=== PATIENT | female | born 1965 | race Caucasian/White ===

== ENCOUNTER 2016-03-24 23:36 | Observation (INO) ==
[2016-03-25 00:15] LABS: Basophils % 0.2 %; Eosinophils % 0.1 %; Hematocrit 41.5 % (35.3-44.9); Hemoglobin 14.2 g/dL (11.5-15.4); Immature Granulocytes % 0.6 % (0-4); Lymphocytes # 0.9 K/mcL (0.6-4.6); Mean Corpuscular HGB Conc 34.2 g/dL (31.6-35.5); Mean Corpuscular Volume 87.7 fL (83.0-100.0); Mean Platelet Volume 10.4 fL (9.4-12.4); Monocytes # 0.3 K/mcL (0.0-1.3); Monocytes % 2.6 %; Neutrophils # 8.8 K/mcL (1.6-8.9); Platelet Count 286 K/mcL (140-400); Red Blood Count 4.73 M/mcL (3.82-4.97); Red Cell Distribution Width 12.3 % (11.5-14.5); Segmented Neutrophils % 87.5 %
--- NOTE | 2016-03-25 00:41 | Emergency Department Note ---
Disposition Clinical Impression: Generalized abdominal pain, Nausea and vomiting, Dehydration, Urinary incontinence Disposition: Admitted As Inpatient Condition: Fair Referrals: NO,PCP [Primary Care Provider] - Forms: Work/School Release, ED Satisfaction Letter Time of Disposition: 03:46 Abdominal Pain HPI - General Chief Complaint: ED Abdominal Pain Stated Complaint: belly pain,n/v Time Seen by Provider: 03/25/16 00:39 Source: patient, EMS Mode of arrival: EMS Limitations: other (pt is drowsy on exam) Nursing Notes Reviewed: Yes Vital Signs Reviewed: Yes - History of Present Illness HPI Narrative: This is a 50-year-old female who presents with abdominal pain diffusely starting yesterday. Patient denies any diarrhea or bloody stools. Patient does state associated nausea and vomiting. Patient denies any fevers. Patient' s very drowsy on exam and is a poor historian. Patient states she is mildly short of breath but is not having chest pain. Pt Subjective Complaint: abdominal pain Onset (ago): day(s) (1) Consistency: constant Pain Scale: 10 - Related Data Previous Rx's Medication Instructions Recorded Ibuprofen [Motrin] 600 mg PO Q8HR PRN 5 Days 03/09/15 Ondansetron [Zofran] 4 mg PO Q8HR PRN 5 Days 03/09/15 Dicyclomine [Bentyl] 10 mg PO QID PRN #14 capsule 03/22/15 Allergies Allergy/AdvReac Type Severity Reaction Status Date / Time codeine Allergy Intermediate Hives Verified 03/24/16 23:42 All systems ED: reviewed and negative except as stated. Constitutional: Denies: fever, chills, weakness, weight change Eyes: Denies: eye pain, eye discharge, vision change ENT ED: Denies: ear pain, throat pain, dental pain, hearing loss, epistaxis, congestion, dysphagia Cardiovascular: Denies: chest pain, palpitations, dyspnea on exertion, edema, syncope Respiratory: Denies: cough, dyspnea, wheezes, hemoptysis, stridor Gastrointestinal: Reports: abdominal pain, nausea, vomiting. Denies: diarrhea, constipation, hematemesis, melena, hematochezia Genitourinary: Denies: dysuria, frequency, hematuria, discharge Musculoskeletal: Denies: back pain, neck pain, arthralgia, myalgia Integumentary: Denies: rash, abrasion, lesions Neurological: Denies: headache, weakness, numbness, paresthesias, confusion, abnormal gait, vertigo Psychiatric: Denies: anxiety, depression, suicidal thoughts, homicidal thoughts , auditory hallucinations, visual hallucinations Endocrine: Denies: fatigue Hematological/Lymphatic: Denies: easy bleeding, easy bruising Allergic/Immunologic: Denies: facial swelling, urticaria Abdominal Pain PMH - Past Medical History Medical history: Reports: diabetes, GERD, hypertension, migraine, TIA Female Surgical History: Reports: angioplasty/stent, , cholecystectomy , hysterectomy [employer] 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, other Psychiatric history: Reports: no psych history - Social History Smoking status: Never smoker Alcohol use: Reports: none Drug use: Reports: none Physical Exam - General Limitations: other (drowsy) General appearance: other (drowsy) - Head Head exam: atraumatic, normocephalic, normal inspection - Eye Eye exam: Present: normal appearance, PERRL, EOMI - ENT ENT exam: normal exam, normal oropharynx, mucous membranes moist - Expanded ENT Exam External ear exam: Present: normal external inspection Mouth exam: Present: normal external inspection Teeth exam: Present: normal inspection Throat exam: Present: normal inspection - Neck Neck exam: Present: normal inspection, full ROM, trachea midline - Chest Chest inspection: Present: normal inspection, symmetric chest wall rise - Respiratory Respiratory exam: Present: normal lung sounds bilaterally - Cardiovascular Cardiovascular exam: Present: regular rate, normal rhythm, normal heart sounds - Abdominal Exam Abdominal exam: Present: soft, tenderness. Absent: distention, guarding, rebound, rigidity Abdominal tenderness: Present: diffuse, moderate - Extremities Exam Extremities exam: Present: normal inspection, full ROM. Absent: tenderness, pedal edema - Expanded Upper Extremity Exam Shoulder exam: Present: normal inspection, full ROM Arm exam: Present: normal inspection, full ROM Elbow exam: Present: normal inspection, full ROM Forearm/Wrist exam: Present: normal inspection, full ROM Hand exam: Present: normal inspection, full ROM Vascular exam: Normal: capillary refill, radial pulse - Expanded Lower Extremity Exam Hip/Pelvis exam: Present: normal inspection, full ROM Upper leg exam: Present: normal inspection, full ROM Knee exam: Present: normal inspection, full ROM Lower leg exam: Present: normal inspection, full ROM Ankle exam: Present: normal inspection, full ROM Foot/toe exam: Present: normal inspection, full ROM Neurovascular/Tendon exam: Absent: motor deficit, sensory deficit, tendon deficit - Back Exam Back exam: Present: normal inspection, full ROM. Absent: tenderness - Neurological Exam Neurological exam: Present: alert, oriented X3 - Expanded Neurological Exam Patient oriented to: Present: person, place, time Coma Scale Eye Opening: Spontaneous Coma Scale Motor Response: Obeys Commands Coma Scale Verbal Response: Oriented Coma Scale Total: 15 - Psychiatric Psychiatric exam: Present: normal affect, normal mood - Skin Skin exam: Present: warm, dry, intact, normal color Course - Consultations Consultation #1: I spoke with Dr. Iván shelton to admit. Time: 03:54 Vital Signs Temperature 98.5 F 03/24/16 23:42 Pulse Rate 87 03/24/16 23:42 Respiratory Rate 20 03/24/16 23:42 Blood Pressure 158/82 03/24/16 23:42 O2 Sat by Pulse Oximetry 96 03/24/16 23:42 Temperature 98.5 F 03/24/16 23:42 Pulse Rate 70 03/25/16 03:36 Respiratory Rate 16 03/25/16 03:36 Blood Pressure 132/84 03/25/16 03:36 O2 Sat by Pulse Oximetry 97 03/25/16 03:36 Oxygen Delivery Oxygen Delivery Room Air Abdominal Pain - Medical Records Medical records reviewed: Yes I reviewed the patient's medical records. - Lab Data Lab results reviewed: Yes I reviewed the patient's lab results. Result diagrams: 03/25/16 00:02 03/25/16 00:02 Lab Results 03/25/16 03/25/16 03/25/16 Range/Units 00:02 00:02 00:02 WBC 10.1 (4.3-11.1) K/mcL RBC 4.73 (3.82-4.97) M/mcL Hgb 14.2 (11.5-15.4) g/dL Hct 41.5 (35.3-44.9) % MCV 87.7 (83.0-100.0) fL MCH 30.0 (28.0-33.3) pg MCHC 34.2 (31.6-35.5) g/dL RDW 12.3 (11.5-14.5) % Plt Count 286 (140-400) K/mcL MPV 10.4 (9.4-12.4) fL Immature Gran % 0.6 (0-4) % Seg Neutrophils % 87.5 % Lymphocytes % 9.0 % Monocytes % 2.6 % Eosinophils % 0.1 % Basophils % 0.2 % Neutrophils # 8.8 (1.6-8.9) K/mcL Lymphocytes # 0.9 (0.6-4.6) K/mcL Monocytes # 0.3 (0.0-1.3) K/mcL Eosinophils # 0.0 (0.0-0.6) K/mcL Basophils # 0.0 (0.0-0.2) K/mcL Sodium 134 L (136-145) mEq/L Potassium 3.7 (3.5-4.5) mEq/L Chloride 100 (98-109) mEq/L Carbon Dioxide 20 (19-29) mEq/L BUN 11 (7-20) mg/dL Creatinine 0.83 (0.57-1.11) mg/dL Est GFR ( Amer) > 60 (> 60) Est GFR (Non-Af Amer) > 60 (> 60) BUN/Creatinine Ratio 13 (6-26) Glucose 168 H (70-99) mg/dL Calculated Osmolality 281 (280-300) Calcium 9.7 (8.6-10.8) mg/dL Total Bilirubin 0.8 (0.2-1.2) mg/dL Direct Bilirubin 0.3 (0.0-0.5) mg/dL Indirect Bilirubin 0.5 (0.0-1.2) mg/dL AST 21 (5-34) Units/L ALT 28 (0-55) Units/L Alkaline Phosphatase 104 (38-126) Units/L Troponin I 0.00 (0-0.03) ng/mL Serum Total Protein 8.1 (6.0-8.3) g/dL Albumin 4.3 (3.5-5.0) g/dL Globulin 3.8 H (2.4-3.5) g/dL Albumin/Globulin Ratio 1.1 (1.1-2.2) Amylase 80 (25-125) Units/L Lipase 21 (8-78) Units/L Urine Color (Yellow) Urine Clarity (Clear) Urine pH (5.0-8.0) pH Units Ur Specific [place] (1.010-1.025) Urine Protein (Neg-Trace) mg/dL Urine Glucose (UA) (Normal) mg/dL Urine Ketones (Negative) mg/dL Urine Blood (Negative) Urine Nitrite (Negative) Urine Bilirubin (Negative) Urine Urobilinogen (Normal) mg/dL Ur Leukocyte Esterase (Negative) Ur Culture Indicated? (NO) Salicylates < 5.0 L (15-30) mg/dL Urine Opiates Screen (Enorxj=423) ng/mL Acetaminophen < 1.0 L (10-30) mcg/mL Ur Barbiturates Screen (Hygwjg=170) ng/mL Ur Phencyclidine Scrn (Cutoff=25) ng/mL Ur Amphetamines Screen (Wilzjj=1312) ng/mL U Benzodiazepines Scrn (Ikcdcd=016) ng/mL Urine Cocaine Screen (Cutoff= 300) ng/mL U Marijuana (THC) Screen (Cutoff = 50) ng/mL Ethyl Alcohol < 10 (0-10) mg/dL 03/25/16 03/25/16 Range/Units 03:01 03:01 WBC (4.3-11.1) K/mcL RBC (3.82-4.97) M/mcL Hgb (11.5-15.4) g/dL Hct (35.3-44.9) % MCV (83.0-100.0) fL MCH (28.0-33.3) pg MCHC (31.6-35.5) g/dL RDW (11.5-14.5) % Plt Count (140-400) K/mcL MPV (9.4-12.4) fL Immature Gran % (0-4) % Seg Neutrophils % % Lymphocytes % % Monocytes % % Eosinophils % % Basophils % % Neutrophils # (1.6-8.9) K/mcL Lymphocytes # (0.6-4.6) K/mcL Monocytes # (0.0-1.3) K/mcL Eosinophils # (0.0-0.6) K/mcL Basophils # (0.0-0.2) K/mcL Sodium (136-145) mEq/L Potassium (3.5-4.5) mEq/L Chloride (98-109) mEq/L Carbon Dioxide (19-29) mEq/L BUN (7-20) mg/dL Creatinine (0.57-1.11) mg/dL Est GFR ( Amer) (> 60) Est GFR (Non-Af Amer) (> 60) BUN/Creatinine Ratio (6-26) Glucose (70-99) mg/dL Calculated Osmolality (280-300) Calcium (8.6-10.8) mg/dL Total Bilirubin (0.2-1.2) mg/dL Direct Bilirubin (0.0-0.5) mg/dL Indirect Bilirubin (0.0-1.2) mg/dL AST (5-34) Units/L ALT (0-55) Units/L Alkaline Phosphatase (38-126) Units/L Troponin I (0-0.03) ng/mL Serum Total Protein (6.0-8.3) g/dL Albumin (3.5-5.0) g/dL Globulin (2.4-3.5) g/dL Albumin/Globulin Ratio (1.1-2.2) Amylase (25-125) Units/L Lipase (8-78) Units/L Urine Color Yellow (Yellow) Urine Clarity Clear (Clear) Urine pH 7.5 (5.0-8.0) pH Units Ur Specific [place] 1.012 (1.010-1.025) Urine Protein Negative (Neg-Trace) mg/dL Urine Glucose (UA) 100 H (Normal) mg/dL Urine Ketones Trace H (Negative) mg/dL Urine Blood Negative (Negative) Urine Nitrite Negative (Negative) Urine Bilirubin Negative (Negative) Urine Urobilinogen Normal (Normal) mg/dL Ur Leukocyte Esterase Negative (Negative) Ur Culture Indicated? NO (NO) Salicylates (15-30) mg/dL Urine Opiates Screen Negative (Pyrxwx=315) ng/mL Acetaminophen (10-30) mcg/mL Ur Barbiturates Screen Negative (Phujco=073) ng/mL Ur Phencyclidine Scrn Negative (Cutoff=25) ng/mL Ur Amphetamines Screen Negative (Jfkhud=5025) ng/mL U Benzodiazepines Scrn Negative (Fpfusz=822) ng/mL Urine Cocaine Screen Negative (Cutoff= 300) ng/mL U Marijuana (THC) Screen Negative (Cutoff = 50) ng/mL Ethyl Alcohol (0-10) mg/dL - Radiology Data Radiology results reviewed: Yes I reviewed the patient's radiology results. - EKG Data EKG attestation: Yes I reviewed and interpreted this EKG. EKG shows normal: sinus rhythm Rate: normal Rhythm: NSR Dyess/QRS: normal Interpretation: no acute changes, normal EKG
[2016-03-25 00:46] LABS: Alanine Aminotransferase 28 Units/L (0-55); Albumin 4.3 g/dL (3.5-5.0); Albumin/Globulin Ratio 1.1 (1.1-2.2); Alkaline Phosphatase 104 Units/L (38-126); Amylase 80 Units/L (25-125); Aspartate Amino Transferase 21 Units/L (5-34); BUN/Creatinine Ratio 13 (6-26); Bilirubin,Direct 0.3 mg/dL (0.0-0.5); Bilirubin,Indirect 0.5 mg/dL (0.0-1.2); Bilirubin,Total 0.8 mg/dL (0.2-1.2); Blood Urea Nitrogen 11 mg/dL (7-20); Calcium 9.7 mg/dL (8.6-10.8); Carbon Dioxide 20 mEq/L (19-29); Chloride 100 mEq/L (98-109); Globulin 3.8 g/dL (2.4-3.5); Glucose 168 mg/dL (70-99); Lipase 21 Units/L (8-78); Osmolality,Calculated 281 (280-300); Potassium 3.7 mEq/L (3.5-4.5); Sodium 134 mEq/L (136-145); Total Protein 8.1 g/dL (6.0-8.3); eGFR For African Americans > 60 (> 60); eGFR For Non-African Americans > 60 (> 60)
[2016-03-25] MEDS ORDERED: Ondansetron 4 MG/2 ML VIAL IV ONE (00:55)
[2016-03-25 01:04] LABS: Acetaminophen < 1.0 mcg/mL (10-30); Ethanol < 10 mg/dL (0-10); Salicylate < 5.0 mg/dL (15-30)
[2016-03-25] MEDS: 0.9 % Sodium Chloride 1,000 ML IV SCH ×3 (01:23→23:23)
[2016-03-25 03:10] LABS: Bilirubin,Urine Negative (Negative); Blood,Urine Negative (Negative); Clarity,Urine Clear (Clear); Color,Urine Yellow (Yellow); Glucose,Urine (UA) 100 mg/dL (Normal); Ketones,Urine Trace mg/dL (Negative); Leukocyte Esterase,Urine Negative (Negative); Nitrite,Urine Negative (Negative); PH,Urine 7.5 pH Units (5.0-8.0); Protein,Urine Negative (Neg-Trace); Specific Gravity,Urine 1.012 (1.010-1.025); Urobilinogen,Urine Normal (Normal)
[2016-03-25 03:15] LABS: Amphetamine Screen,Urine Negative ng/mL (Cutoff=1000); Barbiturate Screen,Urine Negative ng/mL (Cutoff=200); Benzodiazepines Screen,Urine Negative ng/mL (Cutoff=200); Cannabinoid Screen,Urine Negative ng/mL (Cutoff = 50); Cocaine Screen,Urine Negative ng/mL (Cutoff= 300); Opiate Screen,Urine Negative ng/mL (Cutoff=300); Phencyclidine Screen,Urine Negative ng/mL (Cutoff=25)
[2016-03-25] MEDS ORDERED: *HR* Promethazine 25 MG/ML VIAL IM ONE (04:10)
[2016-03-25] MEDS ORDERED: Naloxone 0.4 MG/ML INJ IVP PRN (05:15)
[2016-03-25] MEDS ORDERED: *HR* OxyCODONE Immed Rel 5 MG TABLET PO PRN (05:20)
[2016-03-25] MEDS ORDERED: *HR* Morphine 2 MG/ML SYRINGE IVP PRN (05:20)
--- NOTE | 2016-03-25 05:43 | Internal Med History&Physical ---
Date of Encounter: 03/25/16 Time of Encounter: 05:00 Assessment and Plan (1) Acute generalized abdominal pain Current visit: Yes Status: Acute . (2) Intractable nausea and vomiting Current visit: Yes Status: Acute . Qualifiers: Vomiting type: cyclical vomiting Qualified Code(s): G43.A1 - Cyclical vomiting, intractable (3) Toxic metabolic encephalopathy Current visit: Yes Status: Acute . (4) Delirium due to conditions classified elsewhere Current visit: Yes Status: Acute . (5) Dehydration with hyponatremia Current visit: Yes Status: Acute . (6) Gastritis Current visit: Yes Status: Acute . Qualifiers: Gastritis type: unspecified gastritis Chronicity: unspecified Gastritis bleeding: without bleeding Qualified Code(s): K29.70 - Gastritis, unspecified , without bleeding (7) Irritable bowel syndrome (IBS) Current visit: Yes Status: Chronic . Qualifiers: Irritable bowel syndrome type: unspecified Qualified Code(s): K58.9 - Irritable bowel syndrome without diarrhea (8) Obesity (BMI 30-39.9) Current visit: Yes Status: Chronic . (9) Diverticular disease of colon Current visit: Yes Status: Chronic . Qualifiers: Diverticulosis bleeding: diverticulosis without bleeding Qualified Code(s) : K57.30 - Diverticulosis of large intestine without perforation or abscess without bleeding (10) Nonspecific mesenteric adenitis Current visit: Yes Status: Acute . (11) Nonspecific syndrome suggestive of viral illness Current visit: Yes Status: Acute . Internal Medicine - H&P: HPI Chief complaint: Abdominal pain. Nausea vomiting. Admitted From: Emergency Dept Plans for Post Hospital Care: Home History of present illness: Ms. Tamayo is a 50 year old female history significant for borderline diabetes mellitus, hypertension, dyslipidemia, GERD/hiatal hernia/?esophageal spasm, chronic gastritis, irritable bowel syndrome, diverticulosis coli, migraine headaches, H/O multiple TIAs, ?AMI per pt, osteoarthritis, hypothyroidism during , obesity, nonsmoker The patient was visited and interviewed and examined. The patient is admitted to [facility] via the emergency department when she presents by EMS services from home with complaints of intractable abdominal pain nausea and vomiting. Symptoms began approximately one day prior to presentation with the patient experiencing diffuse pain. Denied any initial diarrheal stools constipation bloody stools. She did use cramping pain with nausea and vomiting. Vomitus was bilious or undigested food. Not any overt fevers but a general feeling of feverishness and chills and drowsiness and diffuse myalgias experience. He acknowledged some feeling of listlessness and shortness of breath but without pain without cough without any murmur or lower respiratory congestion.. Loose stools on the day of admission watery some mucus. Pain when most severe rated as a 10/10 severity. Generalized. Denies any medication dietary or recreational descriptions. 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 She denies any recent antibiotic therapies. Reports being current with influenza vaccination and pneumococcal. No travels abroad or suspect food ingestions. Findings in the ED : Temperature 98.5 pulse 70-87 respirations 16-20 BP 132-158/82-84 respirations 97% at room air. WBC 10.1 hemoglobin 14.2 platelets 286,000. Differential normal. Metabolic panel normal except sodium 134 glucose 168-81. BUN 11 creatinine 0.83. Troponin 0.00. Salicylates less than 5. Acetaminophen less than 1. Ethyl alcohol less than 10. Urinalysis large glucose trace ketone. Urine drug screen negative. Chest x-ray showed no acute or active cardiopulmonary process. CT of abdomen to pelvis without contrast demonstrated tiny sliding and paraesophageal hiatal hernia. Lower lobe atelectasis. Mild cardiomegaly. No evidence for effusion infiltrate edema or pneumothorax. No osseous abnormalities. Granulomatous disease of the lingula and spleen with isolated calcifications. Chronic diverticulosis without evidence for diverticulitis. Mild mesenteric lymphadenopathy with stranding area status post cholecystectomy. Status post hysterectomy. Preliminary impression suggest abdominal pain with nausea vomiting and episode of loose diarrheal stool suggestive of acute gastroenteritis-colitis. The dictation is impressive for degree of intoxication and drowsiness.. Patient is acutely ill and uncomfortable at rest. Vital signs however are relatively benign. Screening studies also benign. CT of the abdomen suggest possible localized/minimal mesenteric lymphadenitis - panniculitis. The patient's history of working with [employer] patients with recent viral syndromes may serve as a source for illness. The patient is at risk for further acute clinical decline and morbidity given the presenting chief complaints, clinical findings and comorbidities. Workup and treatments will progress comprehensively. Cumulative laboratory and radiographic data base was reviewed, considered and discussed. Pertinent ancillary medical records including ECW and PCI documentation, when available was reviewed and considered. Given the patient's presenting concerns, past medical history, clinical findings and symptoms, she is admitted at this time will undergo further evaluation and disposition. Orders were written as per the computerized physician warehouse order picker system.......................................................................... .................... Consultative opinions will be sought as clinical circumstances justify. Pain management needs will be addressed. Laboratory and radiographic data base will be updated as appropriate. Studies include: Cultures of blood urine sputum, GI panel, C.diff toxin, UA, cardiac injury panel, BNP, metabolic and hematologic panel, magnesium, phosphorus, ionized calcium, thyroid panel, lipid profile, A1c, C-peptide, CRP , sedimentation rate, respiratory infection profile, respiratory virus panel, blood gas, UDS, ETOH, APAP, ASA, lactic acid, serologies, etc. Precautions: Aspiration, fall, delirium protocol/surveillance initiated. Telemetry with continuous hemodynamic monitoring and pulse oximetry initiated. Empiric antibody coverage: Intravenous ciprofloxacin and metronidazole pending culture data. Special studies: CT abdomen/pelvis, chest x-ray, telemetry, EKG. Bowel rest is imposed. NPO/clear liquids diet and advance as clinical circumstances permit. Antiemetic probiotica and prokinetic therapies. Oral carafate suspension. Rehydration therapy. Pulmonary toilet: Incentive spirometry. When necessary aerosol bronchodilator, mucolytic, antitussive. Supplemental oxygen. Corticosteroid therapy prn. CPAP/ BiPAP supplemental oxygen delivery prn. Aerosol Mucomyst therapy prn. Fluid and electrolyte repletion efforts will proceed. Careful attention to fluid balance and renal recovery will be emphasized. Avoidance of nephrotoxic exposure and adverse drug drug interaction in the setting of impaired renal function will be monitored closely. Acute coronary syndrome protocol/surveillance initiated. DVT and PUD prophylaxis initiated: PPI/H2 tete therapy, intermittent pneumatic cuffs/TEDs. Subcutaneous heparin/Lovenox. Early ambulation will be encouraged. Immunization updates recommended. Influenza and pneumococcal vaccinations as part of ongoing preventative healthcare recommendations strongly recommended. Smoking cessation counseling briefly addressed. Patient is a nonsmoker. Advanced care directive discussion briefly addressed. Patient does not declare any healthcare restrictions at this time. Cardiovascular risk appraisal and cardiovascular risk reduction efforts will be emphasized. Physical and occupational therapy may be consulted to evaluate patient's functional capacity and progress mobility if her circumstances justify. Nutrition/diabetes education counseling may be considered as circumstances justify. Outpatient medication schedules will be reviewed, confirmed and facilitated as appropriate. Reconciliation of home treatments including adjustments, substitutions and reintroduction into the treatment regimen will address necessary maintenance therapies for chronic pre-existing medical conditions. Plan of care has been reviewed and discussed in detail with the patient. Questions addressed. Hospital course will be dependent upon collective clinical findings, treatment response and potential consultative interventions. Patient is at risk for further acute clinical decline and due to her presenting chief complaints, findings and comorbidities. Condition is serious. Prognosis is cautiously optimistic. CODE STATUS is full. Past Med Surg Social Fam HX - Past Medical History Source: old records reviewed Medical history: arthritis, asthma (Reactive airway disease.), diabetes (Non- insulin-dependent/borderline diabetes mellitus.), GERD, hyperlipidemia, hypertension, migraine (Mixed headaches with migrainous component.), myocardial infarction, osteoporosis (Vitamin D deficiency.), thyroid disease (Thyroid dysfunction with .), TIA (Intermittent dizziness, memory loss, pain, paresthesias and confusion of unclear etiology), other Psychiatric history: anxiety, depression, other - Past Surgical History Surgical History: angioplasty/stent, (4), cholecystectomy, herniorrhaphy, hysterectomy, ISSA/BSO, other (Esophagogastroduodenoscopy. Tubal ligation.) - Social History Smoking Status: Never smoker Smokeless Tobacco Status: No Alcohol use: none Drug use: none Occupational status: employed Current living situation: With Family Activity Level: Independent ambulation, Mostly sedentary Recent Out of Country Travel Within the Last 8 Weeks: No Exposure or Possible Exposure to Illness During Travel: No Internal Medicine - H&P: Meds Ibuprofen [Motrin] 600 mg PO Q8HR PRN 5 Days 03/09/15 [Rx] Ondansetron [Zofran] 4 mg PO Q8HR PRN 5 Days 03/09/15 [Rx] Dicyclomine [Bentyl] 10 mg PO QID PRN #14 capsule 03/22/15 [Rx] Allergies codeine Allergy (Intermediate, Verified 03/25/16 08:43) Hives ROS unobtainable: due to mental status All Systems PM: A 10-system review of systems was performed and is negative for pertinent findings except as documented above in the HPI. Patient presents mildly encephalopathic. Acutely ill and delirious. Information is collected without validation. Patient is considered a limited historian. Additional information collected from medical records and EMS triage and ER on admission data. - Constitutional Constitutional: as per HPI, malaise, other, no chills, no fever(s), no night sweats - EENT Eyes: as per HPI, no change in vision, no discharge, no pain, no photophobia Ears: as per HPI, no ear discharge, no ear pain, no tinnitus Nose, mouth and throat: as per HPI, no dysphagia, no nasal discharge, no neck pain, no sore throat - Cardiovascular Cardiovascular ROS IM: as per HPI, no chest pain, no diaphoresis, no dyspnea, no lightheadedness, no palpitations, no syncope - Respiratory Respiratory: as per HPI, no cough, no dyspnea, no wheezing, no excessive phlegm production - Gastrointestinal Gastrointestinal: as per HPI, abdominal pain, bloating, change in bowel habits, cramping, diarrhea, nausea, vomiting, other, no hematemesis, no hematochezia, no melena - Genitourinary Genitourinary: as per HPI, no change in urinary stream, no dysuria, no flank pain, no hematuria - Musculoskeletal Musculoskeletal ROS IM: as per HPI, no numbness, no tingling - Integumentary Integumentary IM: as per HPI, no rash, no unusual bruising - Neurological Neurological ROS: as per HPI, confusion, other, no convulsions, no focal weakness, no headache(s), no numbness, no tingling, no tremor(s) - Psychiatric Psychiatric: as per HPI - Endocrine Endocrine IM: as per HPI - Hematologic/Lymphatic Hematologic/Lymphatic: as per HPI, no easy bruising - Allergic/Immunologic Allergic/Immunologic: as per HPI - Constitutional Vitals: Temp Pulse Resp BP Pulse Ox 97.4 F L 63 16 161/73 100 03/25/16 05:07 03/25/16 05:07 03/25/16 05:07 03/25/16 05:07 03/25/16 05:07 General appearance: Present: A&O X 3, obese, severe distress, answers questions appropriately. Absent: cooperative Exam: Lethargic. Somnolent/drowsy. Arousable to noxious stimuli. - Head Head exam: Present: atraumatic, normocephalic - Eye Eye exam: Present: EOMI, PERRL, conjuntiva pink, sclera anicteric Pupils: Present: PERRL - ENT ENT exam: Present: mucous membranes dry, normal oropharynx - Neck Neck exam general surgery: Present: full ROM, supple, trachea midline. Absent: lymphadenopathy, tenderness, nuchal rigidity - Respiratory Respiratory exam: Present: chest wall tenderness, decreased breath sounds, CTAB. Absent: accessory muscle use, rales, rhonchi, wheezes - Cardiovascular Cardiovascular exam: Present: RRR, +S1, +S2. Absent: diastolic murmur, gallop, rubs, systolic murmur - GI/Abdominal GI/Abdominal exam: Present: diminished bowel sounds, distended, guarding, normal bowel sounds, soft, tenderness, no peritoneal signs. Absent: mass, rebound, rigid - Extremities Exam Extremities exam: Present: full ROM, warm, radial pulses palpable and symetrical. Absent: calf tenderness, cyanotic, pedal edema - Neurological Exam Neurological exam: Present: alert, altered, CN II-XII intact, oriented X3, no focal deficits. Absent: pronater drift, facial droop, speech deficit - Expanded Neurological Exam Neurological exam expanded: Present: inattentive, protecting the airway. Absent : expressive aphasia, receptive aphasia Patient oriented to: Present: person, place. Absent: time Speech: Present: garbled Coma Scale Eye Opening: To Voice Coma Scale Motor Response: Localizes to Pain Coma Scale Verbal Response: Confused Coma Scale Total: 12 - Psychiatric Psychiatric exam: Present: agitated, flat affect - Expanded Psychiatric Exam Focused psych exam: Present: restlessness - Skin Skin exam: Present: dry, intact, warm. Absent: petechiae, rash, urticaria, vesicles Internal Med - H&P Results - Labs CBC & Chem 7: 03/26/16 05:47 03/26/16 05:47 - Impressions Vital Signs Temp Pulse Resp BP Pulse Ox 03/25/16 05:07 97.4 F L 63 16 161/73 100 03/25/16 04:47 16 153/77 03/25/16 04:29 71 18 147/82 97 03/25/16 03:36 70 16 132/84 97 03/25/16 02:24 52 16 145/99 96 03/25/16 00:35 82 16 172/93 97 03/24/16 23:42 98.5 F 87 20 158/82 96 Intake and Output 03/24/16 03/24/16 03/25/16 15:59 23:59 07:59 Intake Total 1000 / 1000 Output Total 0 / 0 Balance 1000 / 1000 Intake: IV Fluids 1000 / 1000 0.9 % Sodium Chloride 1, 1000 / 1000 000 ML @ 1000 mls/hr IV CONT JUSTINA Rx#:[id number] Oral 0 / 0 Output: Urine 0 / 0 Other: Weight 74.843 kg 72.393 kg Patient Weight 03/25/16 23:59 Weight 72.393 kg Short CBC 03/25/16 Range/Units 00:02 WBC 10.1 (4.3-11.1) K/mcL Hgb 14.2 (11.5-15.4) g/dL Hct 41.5 (35.3-44.9) % Plt Count 286 (140-400) K/mcL Neutrophils # 8.8 (1.6-8.9) K/mcL BMP 03/25/16 Range/Units 00:02 Sodium 134 L (136-145) mEq/L Potassium 3.7 (3.5-4.5) mEq/L Chloride 100 (98-109) mEq/L Carbon Dioxide 20 (19-29) mEq/L BUN 11 (7-20) mg/dL Creatinine 0.83 (0.57-1.11) mg/dL Glucose 168 H (70-99) mg/dL Calcium 9.7 (8.6-10.8) mg/dL Cardiac Enzymes 03/25/16 Range/Units 00:02 Troponin I 0.00 (0-0.03) ng/mL Liver Function 03/25/16 Range/Units 00:02 Total Bilirubin 0.8 (0.2-1.2) mg/dL Direct Bilirubin 0.3 (0.0-0.5) mg/dL AST 21 (5-34) Units/L ALT 28 (0-55) Units/L Alkaline Phosphatase 104 (38-126) Units/L Albumin 4.3 (3.5-5.0) g/dL Urine 03/25/16 Range/Units 03:01 Urine Color Yellow (Yellow) Urine Clarity Clear (Clear) Urine pH 7.5 (5.0-8.0) pH Units Ur Specific [place] 1.012 (1.010-1.025) Urine Protein Negative (Neg-Trace) mg/dL Urine Glucose (UA) 100 H (Normal) mg/dL Abnormal lab results Sodium 134 mEq/L (136-145) L 03/25/16 00:02 Glucose 168 mg/dL (70-99) H 03/25/16 00:02 Globulin 3.8 g/dL (2.4-3.5) H 03/25/16 00:02 Urine Glucose (UA) 100 mg/dL (Normal) H 03/25/16 03:01 Urine Ketones Trace mg/dL (Negative) H 03/25/16 03:01 Salicylates < 5.0 mg/dL (15-30) L 03/25/16 00:02 Acetaminophen < 1.0 mcg/mL (10-30) L 03/25/16 00:02 Allergies Allergy/AdvReac Type Severity Reaction Status Date / Time codeine Allergy Intermediate Hives Verified 03/24/16 23:42 Laboratory Results WBC 10.1 K/mcL (4.3-11.1) 03/25/16 00:02 RBC 4.73 M/mcL (3.82-4.97) 03/25/16 00:02 Hgb 14.2 g/dL (11.5-15.4) 03/25/16 00:02 Hct 41.5 % (35.3-44.9) 03/25/16 00:02 MCV 87.7 fL (83.0-100.0) 03/25/16 00:02 MCH 30.0 pg (28.0-33.3) 03/25/16 00:02 MCHC 34.2 g/dL (31.6-35.5) 03/25/16 00:02 RDW 12.3 % (11.5-14.5) 03/25/16 00:02 Plt Count 286 K/mcL (140-400) 03/25/16 00:02 MPV 10.4 fL (9.4-12.4) 03/25/16 00:02 Immature Gran % 0.6 % (0-4) 03/25/16 00:02 Seg Neutrophils % 87.5 % 03/25/16 00:02 Lymphocytes % 9.0 % 03/25/16 00:02 Monocytes % 2.6 % 03/25/16 00:02 Eosinophils % 0.1 % 03/25/16 00: Basophils % 0.2 % 03/25/16 00:02 Neutrophils # 8.8 K/mcL (1.6-8.9) 03/25/16 00:02 Lymphocytes # 0.9 K/mcL (0.6-4.6) 03/25/16 00:02 Monocytes # 0.3 K/mcL (0.0-1.3) 03/25/16 00:02 Eosinophils # 0.0 K/mcL (0.0-0.6) 03/25/16 00:02 Basophils # 0.0 K/mcL (0.0-0.2) 03/25/16 00:02 Sodium 134 mEq/L (136-145) L 03/25/16 00:02 Potassium 3.7 mEq/L (3.5-4.5) 03/25/16 00:02 Chloride 100 mEq/L (98-109) 03/25/16 00:02 Carbon Dioxide 20 mEq/L (19-29) 03/25/16 00:02 BUN 11 mg/dL (7-20) 03/25/16 00:02 Creatinine 0.83 mg/dL (0.57-1.11) 03/25/16 00:02 Est GFR ( Amer) > 60 (> 60) 03/25/16 00:02 Est GFR (Non-Af Amer) > 60 (> 60) 03/25/16 00:02 BUN/Creatinine Ratio 13 (6-26) 03/25/16 00:02 Glucose 168 mg/dL (70-99) H 03/25/16 00:02 Calculated Osmolality 281 (280-300) 03/25/16 00:02 Calcium 9.7 mg/dL (8.6-10.8) 03/25/16 00:02 Total Bilirubin 0.8 mg/dL (0.2-1.2) 03/25/16 00:02 Direct Bilirubin 0.3 mg/dL (0.0-0.5) 03/25/16 00:02 Indirect Bilirubin 0.5 mg/dL (0.0-1.2) 03/25/16 00:02 AST 21 Units/L (5-34) 03/25/16 00:02 ALT 28 Units/L (0-55) 03/25/16 00:02 Alkaline Phosphatase 104 Units/L (38-126) 03/25/16 00:02 Troponin I 0.00 ng/mL (0-0.03) 03/25/16 00:02 Serum Total Protein 8.1 g/dL (6.0-8.3) 03/25/16 00:02 Albumin 4.3 g/dL (3.5-5.0) 03/25/16 00:02 Globulin 3.8 g/dL (2.4-3.5) H 03/25/16 00:02 Albumin/Globulin Ratio 1.1 (1.1-2.2) 03/25/16 00:02 Amylase 80 Units/L (25-125) 03/25/16 00:02 Lipase 21 Units/L (8-78) 03/25/16 00:02 Urine Color Yellow (Yellow) 03/25/16 03:01 Urine Clarity Clear (Clear) 03/25/16 03:01 Urine pH 7.5 pH Units (5.0-8.0) 03/25/16 03:01 Ur Specific [place]im[place] 1.012 (1.010-1.025) 03/25/16 03:01 Urine Protein Negative mg/dL (Neg-Trace) 03/25/16 03:01 Urine Glucose (UA) 100 mg/dL (Normal) H 03/25/16 03:01 Urine Ketones Trace mg/dL (Negative) H 03/25/16 03:01 Urine Blood Negative (Negative) 03/25/16 03:01 Urine Nitrite Negative (Negative) 03/25/16 03:01 Urine Bilirubin Negative (Negative) 03/25/16 03:01 Urine Urobilinogen Normal mg/dL (Normal) 03/25/16 03:01 Ur Leukocyte Esterase Negative (Negative) 03/25/16 03:01 Ur Culture Indicated? NO (NO) 03/25/16 03:01 Salicylates < 5.0 mg/dL (15-30) L 03/25/16 00:02 Urine Opiates Screen Negative ng/mL (Pwftmc=283) 03/25/16 03:01 Acetaminophen < 1.0 mcg/mL (10-30) L 03/25/16 00:02 Ur Barbiturates Screen Negative ng/mL (Uwohdu=639) 03/25/16 03:01 Ur Phencyclidine Scrn Negative ng/mL (Cutoff=25) 03/25/16 03:01 Ur Amphetamines Screen Negative ng/mL (Nrkmpv=3780) 03/25/16 03:01 U Benzodiazepines Scrn Negative ng/mL (Lypdlw=417) 03/25/16 03:01 Urine Cocaine Screen Negative ng/mL (Cutoff= 300) 03/25/16 03:01 U Marijuana (THC) Screen Negative ng/mL (Cutoff = 50) 03/25/16 03:01 Ethyl Alcohol < 10 mg/dL (0-10) 03/25/16 00:02 Impressions Chest X-Ray 03/25/16 00:42 IMPRESSION: Stable portable study. D/ / Laila Matthews Cha, MD / Laila Matthews Cha, MD Interpreting Provider: Laila Matthews Cha, MD Abdomen/Pelvis CT 03/25/16 01:24 IMPRESSION: 1. No acute abnormalities are identified in the abdomen or pelvis. 2. Unchanged minimal mesenteric lymphadenopathy and stranding, indeterminate findings that can be seen with mesenteric panniculitis, reactive change, or other etiologies. 3. Mild cardiomegaly. 4. Tiny sliding and/or paraesophageal hiatal hernia. 5. Mild colonic diverticulosis without findings of acute diverticulitis. D/ / Gualberto Moreno MD / Gualberto Moreno MD Interpreting Provider: Gualberto Moreno MD
[2016-03-25] MEDS ORDERED: Pantoprazole 80 MG in 0.9 % Sodium Chloride 50 ML IVPB STA (05:45)
[2016-03-25] MEDS ORDERED: Famotidine 20 MG/2 ML VIAL IVP SCH (06:00)
[2016-03-25] MEDS: Pantoprazole 40 MG in 0.9 % Sodium Chloride Mini Bag 100 ML IVC SCH ×2 (06:04→12:41)
[2016-03-25] MEDS: 0.9 % Sodium Chloride 1,000 ML IVC SCH ×2 (06:05→15:45)
[2016-03-25 06:09] LABS: VBG HCO3 25.8 mEq/L (21-27); VBG PH 7.33 pH Units (7.32-7.42)
[2016-03-25 06:25] LABS: Chol/HDL Ratio 4.2 (0-4.9); Magnesium 1.8 mg/dL (1.6-2.6); Phosphorous 2.8 mg/dL (2.3-4.7)
[2016-03-25 06:30] LABS: Ionized Calcium 1.1 mmol/L (1.15-1.35)
[2016-03-25 06:46] LABS: Thyroid Stimulating Hormone 2.756 mcIU/mL (0.350-4.840)
[2016-03-25] MEDS ORDERED: Calcium Gluconate 1,000 MG in D5% in Water 100 ML IVPB ONE (06:55)
[2016-03-25] MEDS ORDERED: Albuterol 2.5 MG/3 ML NEBULIZER IH PRN (06:56)
[2016-03-25 07:03] LABS: Prolactin 8.02 ng/mL (5.18-26.53)
[2016-03-25] MEDS: Ondansetron 4 MG/2 ML VIAL IVP PRN ×3 (08:16→23:21)
[2016-03-25] MEDS: MetroNIDAZOLE 500 MG/100 ML 500 MG/100 ML BAG IVPB SCH ×3 (08:16→23:12)
--- NOTE | 2016-03-25 11:23 | Electrocardiograph Report ---
[facility] Test Date: 2016-03-25 Pat Name: Lizette Tamayo Department: 105 Room: 3A45 Gender: F Ct Mri Technologist: CHATA : [id number] Requested By: Yehuda Romero Order Number: [id number] Reading MD: Sonya Mac Measurements Intervals [place] Rate: 70 P: 17 VT: 144 QRS: -1 QRSD: 84 T: 5 QT: 389 QTc: 410 Interpretive Statements SINUS RHYTHM WITH SINUS ARRHYTHMIA Electronically Signed On 03-25-16 11:23:10 EST by Sonya Mac
--- NOTE | 2016-03-25 16:13 | Internal Med Progress Note ---
Date of Encounter: 03/25/16 Time of Encounter: 16:10 - Assessment and plan (1) Acute generalized abdominal pain Current Visit: Yes Status: Acute Assessment and plan: Patient with abdominal pain which is persistent, no evidence of diverticulitis or colitis in the ct. No Leukocytosis, no fever since admission. Patient states that had diarrhea prior to admission. We will continue with IV antibiotics and IV fluids. We will obtain a viral panel, possibility of a viral infection needs to be considered. Continue with supportive management. The plan of care was called in detail with the patient. She expressed understanding. (2) Dehydration Current Visit: Yes Status: Acute (3) Gastritis Current Visit: Yes Status: Acute Qualifiers: Gastritis type: unspecified gastritis Chronicity: unspecified Gastritis bleeding: without bleeding Qualified Code(s): K29.70 - Gastritis, unspecified , without bleeding - Time Spent With Patient 25 - 35 minutes - Subjective Interval history: The significance and continue with the patient. The patient was seen and examined during rounds. She was complaining of nausea, vomiting. She stated had fever and body aches for the last couple of days. She was also complaining of fever and diarrhea. - Constitutional Vitals: Temp Pulse Resp BP Pulse Ox 99.3 F 81 18 156/82 98 03/25/16 14:21 03/25/16 14:21 03/25/16 14:21 03/25/16 15:21 03/25/16 14:21 - Head Head exam: Present: atraumatic, normocephalic - Eye Eye exam: Present: PERRL, conjuntiva pink, sclera anicteric Pupils: Present: PERRL - Neck Neck exam general surgery: Present: supple, trachea midline. Absent: lymphadenopathy - Respiratory Respiratory exam: Present: CTAB. Absent: accessory muscle use, rales, rhonchi, wheezes - Cardiovascular Cardiovascular exam: Present: RRR, +S1, +S2. Absent: diastolic murmur, gallop, rubs, systolic murmur - GI/Abdominal GI/Abdominal exam: Present: normal bowel sounds, soft, no peritoneal signs. Absent: distended, tenderness - Extremities Exam Extremities exam: Present: warm, radial pulses palpable and symetrical. Absent : calf tenderness, cyanotic, pedal edema - Neurological Exam Neurological exam: Present: CN II-XII intact, oriented X3, no focal deficits. Absent: pronater drift, facial droop, speech deficit - Skin Skin exam: Present: dry, intact Internal Medicine: Result - Labs CBC & Chem 7: 03/25/16 00:02 03/25/16 00:02 Labs: Cardiac Enzymes 03/25/16 03/25/16 Range/Units 05:54 12:00 Troponin I 0.00 0.01 (0-0.03) ng/mL Consult Discharge Plan - Plan Referrals: Randy Naranjo MD [Primary Care Provider] -
[2016-03-25] MEDS: Pantoprazole 40 MG VIAL IVP SCH (17:05)
[2016-03-25 19:41] LABS: Adenovirus Not Detected (Not Detect); Bordetella Pertussis Not Detected (Not Detect); Chlamydophila pneumoniae Not Detected (Not Detect); Coronavirus 229E Not Detected (Not Detect); Coronavirus HKU1 Not Detected (Not Detect); Coronavirus NL63 Not Detected (Not Detect); Coronavirus OC43 Not Detected (Not Detect); Human Metapneumovirus Not Detected (Not Detect); Human Rhinovirus/Enterovirus Not Detected (Not Detect); Influenza A Subtype 2009 H1 Not Detected (Not Detect); Influenza A Untypeable Not Detected (Not Detect); Influenza B Not Detected (Not Detect); Mycoplasma pneumoniae Not Detected (Not Detect); Parainfluenza Virus 1 Not Detected (Not Detect); Parainfluenza Virus 2 Not Detected (Not Detect); Parainfluenza Virus 3 Not Detected (Not Detect); Parainfluenza Virus 4 Not Detected (Not Detect); Respiratory Syncytial Virus Not Detected (Not Detect)
[2016-03-26] MEDS: 0.9 % Sodium Chloride 1,000 ML IVC SCH ×2 (02:53→14:42)
[2016-03-26] MEDS: 0.9 % Sodium Chloride 1,000 ML IV SCH ×2 (02:53→14:38)
[2016-03-26] MEDS: Acetaminophen 325 MG TABLET PO PRN ×2 (03:43→14:41)
[2016-03-26 06:01] LABS: Basophils % 0.2 %; Hematocrit 39.6 % (35.3-44.9); Hemoglobin 13.3 g/dL (11.5-15.4); Immature Granulocytes % 0.3 % (0-4); Lymphocytes # 1.5 K/mcL (0.6-4.6); Mean Corpuscular HGB Conc 33.6 g/dL (31.6-35.5); Mean Corpuscular Hemoglobin 29.6 pg (28.0-33.3); Mean Platelet Volume 10.5 fL (9.4-12.4); Monocytes # 0.7 K/mcL (0.0-1.3); Monocytes % 7.6 %; Neutrophils # 6.9 K/mcL (1.6-8.9); Platelet Count 275 K/mcL (140-400); Red Cell Distribution Width 12.6 % (11.5-14.5); Segmented Neutrophils % 75.9 %
[2016-03-26 06:20] LABS: Alanine Aminotransferase 20 Units/L (0-55); Alkaline Phosphatase 85 Units/L (38-126); Aspartate Amino Transferase 15 Units/L (5-34); BUN/Creatinine Ratio 11 (6-26); Bilirubin,Direct 0.3 mg/dL (0.0-0.5); Bilirubin,Indirect 0.5 mg/dL (0.0-1.2); Bilirubin,Total 0.8 mg/dL (0.2-1.2); Blood Urea Nitrogen 9 mg/dL (7-20); Calcium 8.9 mg/dL (8.6-10.8); Carbon Dioxide 22 mEq/L (19-29); Chloride 107 mEq/L (98-109); Globulin 3.3 g/dL (2.4-3.5); Glucose 117 mg/dL (70-99); Osmolality,Calculated 288 (280-300); Potassium 3.5 mEq/L (3.5-4.5); Sodium 139 mEq/L (136-145); Total Protein 6.6 g/dL (6.0-8.3); eGFR For African Americans > 60 (> 60); eGFR For Non-African Americans > 60 (> 60)
[2016-03-26 06:22] LABS: Albumin 3.3 g/dL (3.5-5.0)
[2016-03-26] MEDS: Pantoprazole 40 MG VIAL IVP SCH (08:56)
[2016-03-26] MEDS: MetroNIDAZOLE 500 MG/100 ML 500 MG/100 ML BAG IVPB SCH ×3 (08:56→22:44)
[2016-03-26] MEDS: Ondansetron 4 MG/2 ML VIAL IVP PRN ×2 (13:19→19:39)
--- NOTE | 2016-03-26 16:29 | Internal Med Progress Note ---
Date of Encounter: 03/26/16 Time of Encounter: 16:27 - Assessment and plan (1) Acute generalized abdominal pain Current Visit: Yes Status: Acute Assessment and plan: Patient with abdominal pain which is persistent, no evidence of diverticulitis or colitis in the ct. No Leukocytosis, no fever since admission. Patient states that had diarrhea prior to admission. We will continue with IV antibiotics. Viral panel negative. GI consult tomorrow in am, possible EGD. The plan of care was discussed in detail with the patient. She expressed understanding. (2) Dehydration Current Visit: Yes Status: Acute (3) Gastritis Current Visit: Yes Status: Acute Qualifiers: Gastritis type: unspecified gastritis Chronicity: unspecified Gastritis bleeding: without bleeding Qualified Code(s): K29.70 - Gastritis, unspecified , without bleeding - Subjective Interval history: The patient was seen and examined during rounds. She was complaining of nausea, vomiting. She stated had fever and body aches for the last couple of days. - Constitutional Vitals: Temp Pulse Resp BP Pulse Ox 98.4 F 70 16 107/70 96 03/26/16 11:57 03/26/16 11:57 03/26/16 11:57 03/26/16 11:57 03/26/16 11:57 General appearance: Present: A&O X 3, obese, severe distress, answers questions appropriately. Absent: cooperative - Head Head exam: Present: atraumatic, normocephalic - Eye Eye exam: Present: PERRL, conjuntiva pink, sclera anicteric Pupils: Present: PERRL - Neck Neck exam general surgery: Present: supple, trachea midline. Absent: lymphadenopathy - Respiratory Respiratory exam: Present: CTAB. Absent: accessory muscle use, rales, rhonchi, wheezes - Cardiovascular Cardiovascular exam: Present: RRR, +S1, +S2. Absent: diastolic murmur, gallop, rubs, systolic murmur - GI/Abdominal GI/Abdominal exam: Present: normal bowel sounds, soft, no peritoneal signs. Absent: distended, tenderness - Extremities Exam Extremities exam: Present: warm, radial pulses palpable and symetrical. Absent : calf tenderness, cyanotic, pedal edema - Neurological Exam Neurological exam: Present: CN II-XII intact, oriented X3, no focal deficits. Absent: pronater drift, facial droop, speech deficit - Skin Skin exam: Present: dry, intact Internal Medicine: Result - Labs CBC & Chem 7: 03/26/16 05:47 03/26/16 05:47 Labs: Short CBC 03/26/16 Range/Units 05:47 WBC 9.1 (4.3-11.1) K/mcL Hgb 13.3 (11.5-15.4) g/dL Hct 39.6 (35.3-44.9) % Plt Count 275 (140-400) K/mcL Neutrophils # 6.9 (1.6-8.9) K/mcL BMP 03/26/16 05:47 Sodium 139 Potassium 3.5 Chloride 107 Carbon Dioxide 22 BUN 9 Creatinine 0.80 Glucose 117 H Calcium 8.9 Cardiac Enzymes 03/25/16 Range/Units 17:57 Troponin I 0.01 (0-0.03) ng/mL Liver Function 03/26/16 Range/Units 05:47 Total Bilirubin 0.8 (0.2-1.2) mg/dL Direct Bilirubin 0.3 (0.0-0.5) mg/dL AST 15 (5-34) Units/L ALT 20 (0-55) Units/L Alkaline Phosphatase 85 (38-126) Units/L Albumin 3.3 L D (3.5-5.0) g/dL Consult Discharge Plan - Plan Referrals: Randy Naranjo MD [Primary Care Provider] -
[2016-03-26] MEDS: D5% in 0.45% NACL w KCl 10 MEQ/1,000 ML MLS IVC SCH (18:40)
[2016-03-26 22:29] LABS: Adenovirus F 40/41 PCR Not detected (Not detect); Astrovirus PCR Not detected (Not detect); Campylobacter by PCR Not detected (Not detect); Cryptosporidium by PCR Not detected (Not detect); Cyclospora cayetanensis PCR Not detected (Not detect); E. coli O157 by PCR Not detected (Not detect); Entamoeba histolytica PCR Not detected (Not detect); Enteroaggregative E.coli(EAEC) Not detected (Not detect); Enteropathogenic E.coli(EPEC) Not detected (Not detect); Enterotoxigenic E.coli (ETEC) Not detected (Not detect); Giardia lamblia PCR Not detected (Not detect); Norovirus GI/GII PCR Not detected (Not detect); Plesiomonas shigelloides PCR Not detected (Not detect); Rotavirus A PCR Not detected (Not detect); Salmonella PCR Not detected (Not detect); Sapovirus PCR Not detected (Not detect); Shig/EnteroinvasiveE coli EIEC Not detected (Not detect); Shigalike tox-prod E coli STEC Not detected (Not detect); Vibrio PCR Not detected (Not detect); Vibrio cholerae PCR Not detected (Not detect); Yersinia enterocolitica PCR Not detected (Not detect)
[2016-03-26] MEDS ORDERED: *HR* Promethazine 25 MG/ML VIAL IVP PRN (23:20)
[2016-03-26] MEDS ORDERED: *HR* HYDROmorphone (PF) 1 MG/ML SYRINGE IVP ONE (23:21)
[2016-03-27 04:33] LABS: Basophils % 0.2 %; Eosinophils % 0.1 %; Hematocrit 37.8 % (35.3-44.9); Hemoglobin 13.2 g/dL (11.5-15.4); Immature Granulocytes % 0.4 % (0-4); Lymphocytes # 1.9 K/mcL (0.6-4.6); Lymphocytes % 18.3 %; Mean Corpuscular HGB Conc 34.9 g/dL (31.6-35.5); Mean Corpuscular Hemoglobin 30.3 pg (28.0-33.3); Mean Corpuscular Volume 86.9 fL (83.0-100.0); Mean Platelet Volume 10.3 fL (9.4-12.4); Monocytes # 0.9 K/mcL (0.0-1.3); Monocytes % 8.5 %; Neutrophils # 7.5 K/mcL (1.6-8.9); Platelet Count 243 K/mcL (140-400); Red Blood Count 4.35 M/mcL (3.82-4.97); Red Cell Distribution Width 12.4 % (11.5-14.5); Segmented Neutrophils % 72.5 %
[2016-03-27 04:50] LABS: Alanine Aminotransferase 18 Units/L (0-55); Albumin 3.3 g/dL (3.5-5.0); Alkaline Phosphatase 82 Units/L (38-126); Aspartate Amino Transferase 12 Units/L (5-34); BUN/Creatinine Ratio 6 (6-26); Bilirubin,Direct 0.3 mg/dL (0.0-0.5); Bilirubin,Indirect 0.4 mg/dL (0.0-1.2); Bilirubin,Total 0.7 mg/dL (0.2-1.2); Carbon Dioxide 25 mEq/L (19-29); Chloride 103 mEq/L (98-109); Globulin 3.2 g/dL (2.4-3.5); Glucose 123 mg/dL (70-99); Osmolality,Calculated 283 (280-300); Potassium 3.2 mEq/L (3.5-4.5); Sodium 137 mEq/L (136-145); Total Protein 6.5 g/dL (6.0-8.3); eGFR For African Americans > 60 (> 60); eGFR For Non-African Americans > 60 (> 60)
[2016-03-27 04:51] LABS: Blood Urea Nitrogen 5 mg/dL (7-20)
[2016-03-27] MEDS: 0.9 % Sodium Chloride 1,000 ML IV SCH ×2 (05:12)
[2016-03-27] MEDS: D5% in 0.45% NACL w KCl 10 MEQ/1,000 ML MLS IVC SCH ×2 (05:29→21:26)
[2016-03-27] MEDS: MetroNIDAZOLE 500 MG/100 ML 500 MG/100 ML BAG IVPB SCH ×3 (08:03→23:52)
[2016-03-27] MEDS: Pantoprazole 40 MG VIAL IVP SCH (08:03)
[2016-03-27] MEDS ORDERED: Potassium Chloride 40 MEQ, Lidocaine 1% 2 ML in D5% in Water 500 ML IVPB ONE (08:28)
[2016-03-27] MEDS ORDERED: *HR* HYDROmorphone (PF) 1 MG/ML SYRINGE IVP ONE (09:45)
[2016-03-27] MEDS ORDERED: *HR* Promethazine 25 MG/ML VIAL IVP ONE (09:46)
--- NOTE | 2016-03-27 10:24 | Gastroenterology Consult Note ---
Addendum entered and electronically signed by Gualberto Flores CNP 03/27/16 10 :56: Patient reported dysphagia with solids and occasionally liquids. Dysphagia: Will complete EGD with possible dilation today Original Note: <Gualberto Flores - Last Filed: 03/27/16 10:21> Date of Encounter: 03/27/16 Time of Encounter: 10:05 - Assessment and plan (1) Acute generalized abdominal pain Current Visit: Yes Status: Acute Assessment and plan: EGD 04/12/2015 showed chronic gastritis, but is not on PPI at home. Persistent abdominal pain. CT A/P with no acute abnormalities, but did show diverticulosis and a tiny sliding and/or paraesophageal hiatal hernia. Previous EGD 04/12/15 showed chronic gastritis. No Leukocytosis or fever since admission. Continue IV antibiotics and PPI. Keep pt NPO for EGD today. (2) Nausea and vomiting Current Visit: Yes Status: Acute Assessment and plan: Continue antiemetic. Plan for EGD today. Qualifiers: Vomiting type: unspecified Vomiting Intractability: non-intractable Qualified Code(s): R11.2 - Nausea with vomiting, unspecified (3) Diarrhea Current Visit: Yes Status: Acute Assessment and plan: Pt with diarrhea for the past 3-4 days. GI panel negative. Use Imodium 1-2 tabs TID PRN. Start daily fiber supplement. Qualifiers: Diarrhea type: unspecified type Qualified Code(s): R19.7 - Diarrhea, unspecified (4) Gastritis Current Visit: Yes Status: Acute Assessment and plan: EGD 04/12/2015 with chronic gastritis. Plan for EGD today. Continue PPI. Recommend continuing PPI on discharge. Qualifiers: Gastritis type: unspecified gastritis Chronicity: unspecified Gastritis bleeding: without bleeding Qualified Code(s): K29.70 - Gastritis, unspecified , without bleeding - Time Spent With Patient Total time spent is greater than 50% in coordination of care (as documented) at patient's floor/unit and/or counseling patient: GI History of Present Illness - Data of Consult Patient: new to practice Consult date: 03/27/16 Requesting Physician: Alex Horton - Consult Narrative Reason for consult: Abdominal pain, Nausea, Vomiting History of present illness: Ms. Tamayo is a 50 year old female with PMHx of HTN, GERD, hiatal hernia, IBS, multiple TIAs, ? AMI per pt who presented to the ED with intractable abdominal pain, nausea, and vomiting that started the day before presentation. She denies melena, hematochezia, or hematemesis. She began to experience diarrhea on the day of admission. 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 CT A/P with no acute abnormalities, but did show diverticulosis and a tiny sliding and/or paraesophageal hiatal hernia. No leukocytosis or fevers since admission. Pt started on PPI and carafate due to abdominal pain, as well as Cipro/Flagyl. Pt states she uses ibuprofen as needed , but does not use every day. Procedures: EGD 04/12/2015 Dr. Islas: Chronic gastritis, scalloped mucosa in duodenum. Colonoscopy 01/24/2015 Dr. Polanco: Normal NSAIDs: Ibuprofen PRN Anticoagulation: None Past Med Surg Social Fam HX - Past Medical History Medical history: arthritis, asthma (Reactive airway disease.), diabetes (Non- insulin-dependent/borderline diabetes mellitus.), GERD, hyperlipidemia, hypertension, migraine (Mixed headaches with migrainous component.), myocardial infarction, osteoporosis (Vitamin D deficiency.), thyroid disease (Thyroid dysfunction with .), TIA (Intermittent dizziness, memory loss, pain, paresthesias and confusion of unclear etiology), other Psychiatric history: anxiety, depression, other - Past Surgical History Surgical History: angioplasty/stent, (4), cholecystectomy, herniorrhaphy, hysterectomy, ISSA/BSO, other (Esophagogastroduodenoscopy. Tubal ligation.) - Social History Smoking Status: Never smoker Smokeless Tobacco Status: No Alcohol use: none Drug use: none - Gastrointestinal Gastrointestinal: Present: as per HPI - Constitutional Constitutional: as per HPI - EENT Eyes: as per HPI Ears: Present: as per HPI Nose, mouth and throat: Present: as per HPI - Cardiovascular Cardiovascular ROS: Present: as per HPI - Respiratory Respiratory IM: Present: as per HPI - Genitourinary Genitourinary: Absent: change in color, Urinary frequency - Neurological ROS Neurological GI: Present: as per HPI - Hematologic/Lymphatic Hematologic/Lymphatic pediatric: Present: as per HPI - Musculoskeletal Musculoskeletal ROS GI: Present: as per HPI - Integumentary Integumentary GI: Present: as per HPI - Psychiatric ROS Psychiatric GI: Present: as per HPI - Endocrine Endocrine IM: Present: as per HPI - Constitutional Vitals: Temp Pulse Resp BP Pulse Ox 98.2 F 80 16 135/69 97 03/27/16 06:48 03/27/16 06:48 03/27/16 06:48 03/27/16 06:48 03/27/16 06:48 General appearance: Present: cooperative, A&O X 3, no acute distress, answers questions appropriately - Head Head exam: Present: atraumatic, normocephalic - Eye Eye exam: Present: normal appearance, sclera anicteric - ENT ENT exam: Present: mucous membranes dry - Neck Neck exam general surgery: Present: normal inspection, trachea midline - Respiratory Respiratory exam: Present: CTAB. Absent: rales, rhonchi, wheezes - Cardiovascular Cardiovascular exam: Present: RRR, +S1, +S2 - GI/Abdominal GI/Abdominal exam: Present: soft, tenderness (Upper abdominal tenderness), no peritoneal signs. Absent: distended, firm, guarding - Rectal Rectal exam: Present: deferred - Extremities Exam Extremities exam: Present: warm - Neurological Exam Neurological exam: Present: no focal deficits - Psychiatric Psychiatric exam: Present: normal affect, normal mood - Skin Skin exam: Present: dry, intact, normal color, warm Results - Labs CBC & Chem 7: 03/27/16 04:21 03/27/16 04:21 Labs: Last Result ESR 47 mm/hr (0-15) H 03/25/16 05:54 Calcium 9.0 mg/dL (8.6-10.8) 03/27/16 04:21 Troponin I 0.01 ng/mL (0-0.03) 03/25/16 17:57 C-Reactive Protein 6 mg/L (Less than 5) H 03/25/16 05:54 Triglycerides 74 mg/dL (< 150) 03/25/16 05:54 Salicylates < 5.0 mg/dL (15-30) L 03/25/16 00:02 Urine Opiates Screen Negative ng/mL (Kntcxs=027) 03/25/16 03:01 Entire Visit Hgb 13.2 g/dL (11.5-15.4) 03/27/16 04:21 Hct 37.8 % (35.3-44.9) 03/27/16 04:21 Total Bilirubin 0.7 mg/dL (0.2-1.2) 03/27/16 04:21 AST 12 Units/L (5-34) 03/27/16 04:21 ALT 18 Units/L (0-55) 03/27/16 04:21 Ammonia 16 mcmol/L (18-72) L 03/25/16 05:54 Amylase 80 Units/L (25-125) 03/25/16 00:02 Lipase 21 Units/L (8-78) 03/25/16 00:02 Acetaminophen < 1.0 mcg/mL (10-30) L 03/25/16 00:02 Consult Discharge Plan - Plan Referrals: Randy Naranjo MD [Primary Care Provider] - 04/02/16 10:15 am <Jordan Contreras - Last Filed: 03/27/16 17:45> Time of Encounter: 13:00 - Time Spent With Patient Total time spent is greater than 50% in coordination of care (as documented) at patient's floor/unit and/or counseling patient: GI History of Present Illness - Data of Consult Requesting Physician: Alex Horton - Consult Narrative History of present illness: Ms. Tamayo is a 50 year old female - Constitutional Vitals: Temp Pulse Resp BP Pulse Ox 98.1 F 73 14 108/71 98 03/27/16 15:25 03/27/16 15:25 03/27/16 15:25 03/27/16 15:25 03/27/16 15:25 Results - Labs CBC & Chem 7: 03/27/16 04:21 03/27/16 04:21 Labs: Last Result ESR 47 mm/hr (0-15) H 03/25/16 05:54 Calcium 9.0 mg/dL (8.6-10.8) 03/27/16 04:21 Troponin I 0.01 ng/mL (0-0.03) 03/25/16 17:57 C-Reactive Protein 6 mg/L (Less than 5) H 03/25/16 05:54 Triglycerides 74 mg/dL (< 150) 03/25/16 05:54 Salicylates < 5.0 mg/dL (15-30) L 03/25/16 00:02 Urine Opiates Screen Negative ng/mL (Rtbikr=809) 03/25/16 03:01 Entire Visit Hgb 13.2 g/dL (11.5-15.4) 03/27/16 04:21 Hct 37.8 % (35.3-44.9) 03/27/16 04:21 Total Bilirubin 0.7 mg/dL (0.2-1.2) 03/27/16 04:21 AST 12 Units/L (5-34) 03/27/16 04:21 ALT 18 Units/L (0-55) 03/27/16 04:21 Ammonia 16 mcmol/L (18-72) L 03/25/16 05:54 Amylase 80 Units/L (25-125) 03/25/16 00:02 Lipase 21 Units/L (8-78) 03/25/16 00:02 Acetaminophen < 1.0 mcg/mL (10-30) L 03/25/16 00:02 - Attending Attestation I examined this patient and my medical decision-making was reviewed with the HOLE FILLER/PA/Advanced Practice Nurse/Resident Physician. I agree with the documented findings, disposition and treatment plan as described except to the extent set forth below. Abdominal pain for a while. Labs including imaging unremarkable. Recommendation: EGD if negative then will need EUS OP to make sure she does not have any CBD pathology or other etiology for her chronic abdominal pain
[2016-03-27] MEDS ORDERED: *HR* Midazolam HCl 5 MG/5 ML VIAL IVP ONE (12:40)
[2016-03-27] MEDS ORDERED: *HR* FentaNYL (PF) 100 MCG/2 ML VIAL ONE (12:40)
[2016-03-27] MEDS ORDERED: 0.9 % Sodium Chloride 1,000 ML IVC SCH (12:45)
[2016-03-27] MEDS ORDERED: Tetracaine/Benzocaine/Butamben 200MG/SPRAY (100SPY/BOT) MM ONE (13:29)
[2016-03-27] MEDS ORDERED: *HR* FentaNYL (PF) 100 MCG/2 ML VIAL IVP PRN (13:29)
[2016-03-27] MEDS ORDERED: *HR* Midazolam HCl 5 MG/5 ML VIAL IVP PRN (13:29)
[2016-03-27] MEDS ORDERED: Simethicone 40 MG/0.6 ML MLS IR ONE (13:29)
--- NOTE | 2016-03-27 14:48 | Internal Med Progress Note ---
Date of Encounter: 03/27/16 Time of Encounter: 14:47 - Assessment and plan (1) Acute generalized abdominal pain Current Visit: Yes Status: Acute Assessment and plan: Patient with abdominal pain which is persistent, no evidence of diverticulitis or colitis in the ct. No Leukocytosis, no fever since admission. Patient states that had diarrhea prior to admission. We will continue with IV antibiotics. Viral panel negative. GI consult appreciated, the patient underwent EGD, report to the ED was essentially unremarkable. We will continue with current management, possible discharge tomorrow in a.m. if stable and able to tolerate by mouth. The plan of care was discussed in detail with the patient. She expressed understanding. (2) Dehydration Current Visit: Yes Status: Acute (3) Gastritis Current Visit: Yes Status: Acute Qualifiers: Gastritis type: unspecified gastritis Chronicity: unspecified Gastritis bleeding: without bleeding Qualified Code(s): K29.70 - Gastritis, unspecified , without bleeding - Subjective Interval history: The patient was seen and examined during rounds. Feeling better today, had endoscopy done, report essentially unremarkable. Will resume diet. - Constitutional Vitals: Temp Pulse Resp BP Pulse Ox 98.2 F 84 14 97/60 98 03/27/16 14:20 03/27/16 14:20 03/27/16 14:20 03/27/16 14:20 03/27/16 13:23 General appearance: Present: A&O X 3, obese, severe distress, answers questions appropriately. Absent: cooperative - Head Head exam: Present: atraumatic, normocephalic - Eye Eye exam: Present: PERRL, conjuntiva pink, sclera anicteric Pupils: Present: PERRL - Neck Neck exam general surgery: Present: supple, trachea midline. Absent: lymphadenopathy - Respiratory Respiratory exam: Present: CTAB. Absent: accessory muscle use, rales, rhonchi, wheezes - Cardiovascular Cardiovascular exam: Present: RRR, +S1, +S2. Absent: diastolic murmur, gallop, rubs, systolic murmur - GI/Abdominal GI/Abdominal exam: Present: normal bowel sounds, soft, no peritoneal signs. Absent: distended, tenderness - Extremities Exam Extremities exam: Present: warm, radial pulses palpable and symetrical. Absent : calf tenderness, cyanotic, pedal edema - Neurological Exam Neurological exam: Present: CN II-XII intact, oriented X3, no focal deficits. Absent: pronater drift, facial droop, speech deficit - Skin Skin exam: Present: dry, intact Internal Medicine: Result - Labs CBC & Chem 7: 03/27/16 04:21 03/27/16 04:21 Labs: Short CBC 03/27/16 Range/Units 04:21 WBC 10.3 (4.3-11.1) K/mcL Hgb 13.2 (11.5-15.4) g/dL Hct 37.8 (35.3-44.9) % Plt Count 243 (140-400) K/mcL Neutrophils # 7.5 (1.6-8.9) K/mcL BMP 03/27/16 04:21 Sodium 137 Potassium 3.2 L Chloride 103 Carbon Dioxide 25 BUN 5 L Creatinine 0.77 Glucose 123 H Calcium 9.0 Liver Function 03/27/16 Range/Units 04:21 Total Bilirubin 0.7 (0.2-1.2) mg/dL Direct Bilirubin 0.3 (0.0-0.5) mg/dL AST 12 (5-34) Units/L ALT 18 (0-55) Units/L Alkaline Phosphatase 82 (38-126) Units/L Albumin 3.3 L (3.5-5.0) g/dL Consult Discharge Plan - Plan Referrals: Randy Naranjo MD [Primary Care Provider] - 04/02/16 10:15 am
[2016-03-27] MEDS: Acetaminophen 325 MG TABLET PO PRN (21:10)
[2016-03-27] MEDS: Pantoprazole 40 MG in 0.9 % Sodium Chloride Mini Bag 100 ML IVC SCH (21:25)
[2016-03-28] MEDS: 0.9 % Sodium Chloride 1,000 ML IV SCH ×2 (02:42)
[2016-03-28] MEDS: D5% in 0.45% NACL w KCl 10 MEQ/1,000 ML MLS IVC SCH ×2 (03:34→16:02)
[2016-03-28] MEDS: Ondansetron 4 MG/2 ML VIAL IVP PRN (04:03)
[2016-03-28 05:08] LABS: Basophils # 0.1 K/mcL (0.0-0.2); Basophils % 0.8 %; Eosinophils # 0.4 K/mcL (0.0-0.6); Eosinophils % 4.6 %; Hematocrit 40.4 % (35.3-44.9); Hemoglobin 13.7 g/dL (11.5-15.4); Immature Granulocytes % 0.4 % (0-4); Immature Platelets 4.6 % (1.1-6.1); Lymphocytes # 2.4 K/mcL (0.6-4.6); Lymphocytes % 30.8 %; Mean Corpuscular HGB Conc 33.9 g/dL (31.6-35.5); Mean Corpuscular Hemoglobin 30.1 pg (28.0-33.3); Mean Corpuscular Volume 88.8 fL (83.0-100.0); Mean Platelet Volume 10.1 fL (9.4-12.4); Monocytes # 0.7 K/mcL (0.0-1.3); Monocytes % 8.6 %; Neutrophils # 4.2 K/mcL (1.6-8.9); Platelet Count 261 K/mcL (140-400); Red Blood Count 4.55 M/mcL (3.82-4.97); Red Cell Distribution Width 12.7 % (11.5-14.5); Segmented Neutrophils % 54.8 %
[2016-03-28 05:27] LABS: Alanine Aminotransferase 18 Units/L (0-55); Albumin 3.5 g/dL (3.5-5.0); Alkaline Phosphatase 86 Units/L (38-126); Aspartate Amino Transferase 17 Units/L (5-34); BUN/Creatinine Ratio 7 (6-26); Bilirubin,Direct 0.3 mg/dL (0.0-0.5); Bilirubin,Indirect 0.4 mg/dL (0.0-1.2); Bilirubin,Total 0.7 mg/dL (0.2-1.2); Blood Urea Nitrogen 6 mg/dL (7-20); Calcium 9.4 mg/dL (8.6-10.8); Carbon Dioxide 24 mEq/L (19-29); Chloride 103 mEq/L (98-109); Globulin 3.4 g/dL (2.4-3.5); Glucose 129 mg/dL (70-99); Magnesium 1.8 mg/dL (1.6-2.6); Osmolality,Calculated 285 (280-300); Potassium 3.6 mEq/L (3.5-4.5); Sodium 138 mEq/L (136-145); Total Protein 6.9 g/dL (6.0-8.3); eGFR For African Americans > 60 (> 60); eGFR For Non-African Americans > 60 (> 60)
[2016-03-28] MEDS: *HR* Promethazine 25 MG/ML VIAL IVP PRN ×2 (08:27→16:04)
[2016-03-28] MEDS: MetroNIDAZOLE 500 MG/100 ML 500 MG/100 ML BAG IVPB SCH (09:41)
[2016-03-28] MEDS: Pantoprazole 40 MG VIAL IVP SCH (09:42)
--- NOTE | 2016-03-28 10:43 | Gastroenterology Progress Note ---
<Gualberto Flores - Last Filed: 03/28/16 10:41> Date of Encounter: 03/28/16 Time of Encounter: 10:10 - Assessment and plan (1) Acute generalized abdominal pain Current Visit: Yes Status: Acute Assessment and plan: EGD 03/27/2016 normal. Will plan for EUS as outpatient due to continued abdominal pain. (2) Nausea and vomiting Current Visit: Yes Status: Acute Assessment and plan: Continue antiemetics. EGD yesterday negative. Plan for EUS as outpatient. Qualifiers: Vomiting type: unspecified Vomiting Intractability: non-intractable Qualified Code(s): R11.2 - Nausea with vomiting, unspecified (3) Diarrhea Current Visit: Yes Status: Acute Assessment and plan: GI panel negative. Use Imodium 1-2 tabs TID PRN. Daily fiber supplement. Qualifiers: Diarrhea type: unspecified type Qualified Code(s): R19.7 - Diarrhea, unspecified - Time Spent With Patient Total time spent is greater than 50% in coordination of care (as documented) at patient's floor/unit and/or counseling patient: - Subjective Interval history: The patient continues to complain of abdominal pain, nausea, and vomiting. EGD completed yesterday and was normal. - Constitutional Vitals: Temp Pulse Resp BP Pulse Ox 98 F 84 14 176/94 97 03/28/16 06:56 03/28/16 06:56 03/28/16 06:56 03/28/16 06:56 03/28/16 06:56 General appearance: Present: cooperative, A&O X 3, no acute distress, answers questions appropriately - Head Head exam: Present: atraumatic, normocephalic - Eye Eye exam: Present: normal appearance, sclera anicteric - ENT ENT exam: Present: mucous membranes moist - Neck Neck exam general surgery: Present: normal inspection, trachea midline - Respiratory Respiratory exam: Present: CTAB. Absent: rales, rhonchi - Cardiovascular Cardiovascular exam: Present: RRR, +S1, +S2 - GI/Abdominal GI/Abdominal exam: Present: soft, tenderness (generalized), no peritoneal signs. Absent: distended, firm, guarding - Rectal Rectal exam: Present: deferred - Extremities Exam Extremities exam: Present: warm - Neurological Exam Neurological exam: Present: no focal deficits - Psychiatric Psychiatric exam: Present: normal affect, normal mood - Skin Skin exam: Present: dry, intact, normal color, warm Results - Labs CBC & Chem 7: 03/28/16 04:59 03/28/16 04:59 Labs: Last Result ESR 47 mm/hr (0-15) H 03/25/16 05:54 Calcium 9.4 mg/dL (8.6-10.8) 03/28/16 04:59 Troponin I 0.01 ng/mL (0-0.03) 03/25/16 17:57 C-Reactive Protein 6 mg/L (Less than 5) H 03/25/16 05:54 Triglycerides 74 mg/dL (< 150) 03/25/16 05:54 Salicylates < 5.0 mg/dL (15-30) L 03/25/16 00:02 Urine Opiates Screen Negative ng/mL (Hlgygm=764) 03/25/16 03:01 Entire Visit Hgb 13.7 g/dL (11.5-15.4) 03/28/16 04:59 Hct 40.4 % (35.3-44.9) 03/28/16 04:59 Total Bilirubin 0.7 mg/dL (0.2-1.2) 03/28/16 04:59 AST 17 Units/L (5-34) 03/28/16 04:59 ALT 18 Units/L (0-55) 03/28/16 04:59 Ammonia 16 mcmol/L (18-72) L 03/25/16 05:54 Amylase 80 Units/L (25-125) 03/25/16 00:02 Lipase 21 Units/L (8-78) 03/25/16 00:02 Acetaminophen < 1.0 mcg/mL (10-30) L 03/25/16 00:02 Consult Discharge Plan - Plan Referrals: Randy Naranjo MD [Primary Care Provider] - 04/02/16 10:15 am <Jordan Contreras - Last Filed: 03/28/16 11:56> Time of Encounter: 11:20 - Time Spent With Patient Total time spent is greater than 50% in coordination of care (as documented) at patient's floor/unit and/or counseling patient: - Constitutional Vitals: Temp Pulse Resp BP Pulse Ox 99.1 F 81 15 156/88 98 01/27/17 10:00 03/28/16 10:00 03/28/16 10:00 03/28/16 10:00 03/28/16 10:00 Results - Labs CBC & Chem 7: 03/28/16 04:59 03/28/16 04:59 Labs: Last Result ESR 47 mm/hr (0-15) H 03/25/16 05:54 Calcium 9.4 mg/dL (8.6-10.8) 03/28/16 04:59 Troponin I 0.01 ng/mL (0-0.03) 03/25/16 17:57 C-Reactive Protein 6 mg/L (Less than 5) H 03/25/16 05:54 Triglycerides 74 mg/dL (< 150) 03/25/16 05:54 Salicylates < 5.0 mg/dL (15-30) L 03/25/16 00:02 Urine Opiates Screen Negative ng/mL (Hbbcph=591) 03/25/16 03:01 Entire Visit Hgb 13.7 g/dL (11.5-15.4) 03/28/16 04:59 Hct 40.4 % (35.3-44.9) 03/28/16 04:59 Total Bilirubin 0.7 mg/dL (0.2-1.2) 03/28/16 04:59 AST 17 Units/L (5-34) 03/28/16 04:59 ALT 18 Units/L (0-55) 03/28/16 04:59 Ammonia 16 mcmol/L (18-72) L 03/25/16 05:54 Amylase 80 Units/L (25-125) 03/25/16 00:02 Lipase 21 Units/L (8-78) 03/25/16 00:02 Acetaminophen < 1.0 mcg/mL (10-30) L 03/25/16 00:02 - Attending Attestation I examined this patient and my medical decision-making was reviewed with the SEALER DRY CELL/PA/Advanced Practice Nurse/Resident Physician. I agree with the documented findings, disposition and treatment plan as described except to the extent set forth below. If abd pain persist then MRI due to finding of panniculitis. If still has it then ? Steroids
--- NOTE | 2016-03-28 14:06 | Internal Med Progress Note ---
Date of Encounter: 03/28/16 Time of Encounter: 14:06 - Assessment and plan (1) Acute generalized abdominal pain Current Visit: Yes Status: Acute Assessment and plan: Patient with abdominal pain which is persistent, no evidence of diverticulitis or colitis in the ct. However, there is evidence of panniculitis, which is apparently unchanged from prior studies. No Leukocytosis, no fever since admission. Her hypokalemia has been corrected with supplementation of potassium via IV. She is getting potassium in her iv fluids. Patient states that had diarrhea prior to admission. She is still vomiting persistently in despite of iv meds and an unremarkable EGD and CT. Is on IV PPIs. We will stop IV antibiotics at this point. Viral panel negative. GI consult appreciated, the patient underwent EGD, report to the ED was essentially unremarkable. Will obtain an abd MRI with iv contrast and reevaluate. The plan of care was discussed in detail with the patient. She expressed understanding. (2) Dehydration Current Visit: Yes Status: Acute (3) Gastritis Current Visit: Yes Status: Acute Qualifiers: Gastritis type: unspecified gastritis Chronicity: unspecified Gastritis bleeding: without bleeding Qualified Code(s): K29.70 - Gastritis, unspecified , without bleeding - Subjective Interval history: The patient was seen and examined during rounds. Still nauseous and abd pain. - Constitutional Vitals: Temp Pulse Resp BP Pulse Ox 99.1 F 81 15 156/88 98 03/28/16 10:00 03/28/16 10:00 03/28/16 10:00 03/28/16 10:00 03/28/16 10:00 General appearance: Present: A&O X 3, obese, severe distress, answers questions appropriately. Absent: cooperative - Head Head exam: Present: atraumatic, normocephalic - Eye Eye exam: Present: PERRL, conjuntiva pink, sclera anicteric Pupils: Present: PERRL - Neck Neck exam general surgery: Present: supple, trachea midline. Absent: lymphadenopathy - Respiratory Respiratory exam: Present: CTAB. Absent: accessory muscle use, rales, rhonchi, wheezes - Cardiovascular Cardiovascular exam: Present: RRR, +S1, +S2. Absent: diastolic murmur, gallop, rubs, systolic murmur - GI/Abdominal GI/Abdominal exam: Present: normal bowel sounds, soft, tenderness. Absent: distended - Extremities Exam Extremities exam: Present: warm, radial pulses palpable and symetrical. Absent : calf tenderness, cyanotic, pedal edema - Neurological Exam Neurological exam: Present: CN II-XII intact, oriented X3, no focal deficits. Absent: pronater drift, facial droop, speech deficit - Skin Skin exam: Present: dry, intact Internal Medicine: Result - Labs CBC & Chem 7: 03/28/16 04:59 03/28/16 04:59 Labs: Short CBC 03/28/16 Range/Units 04:59 WBC 7.7 (4.3-11.1) K/mcL Hgb 13.7 (11.5-15.4) g/dL Hct 40.4 (35.3-44.9) % Plt Count 261 (140-400) K/mcL Neutrophils # 4.2 (1.6-8.9) K/mcL BMP 03/28/16 04:59 Sodium 138 Potassium 3.6 Chloride 103 Carbon Dioxide 24 BUN 6 L Creatinine 0.90 Glucose 129 H Calcium 9.4 Liver Function 03/28/16 Range/Units 04:59 Total Bilirubin 0.7 (0.2-1.2) mg/dL Direct Bilirubin 0.3 (0.0-0.5) mg/dL AST 17 (5-34) Units/L ALT 18 (0-55) Units/L Alkaline Phosphatase 86 (38-126) Units/L Albumin 3.5 (3.5-5.0) g/dL Consult Discharge Plan - Plan Referrals: Randy Naranjo MD [Primary Care Provider] - 04/02/16 10:15 am
[2016-03-29] MEDS: D5% in 0.45% NACL w KCl 10 MEQ/1,000 ML MLS IVC SCH ×2 (04:35→05:54)
[2016-03-29] MEDS: 0.9 % Sodium Chloride 1,000 ML IV SCH ×2 (04:35)
[2016-03-29 06:12] LABS: Basophils % 0.4 %; Eosinophils # 0.1 K/mcL (0.0-0.6); Eosinophils % 1.2 %; Hematocrit 40.8 % (35.3-44.9); Hemoglobin 13.6 g/dL (11.5-15.4); Immature Granulocytes % 0.4 % (0-4); Lymphocytes # 1.4 K/mcL (0.6-4.6); Lymphocytes % 17.1 %; Mean Corpuscular HGB Conc 33.3 g/dL (31.6-35.5); Mean Corpuscular Hemoglobin 29.4 pg (28.0-33.3); Mean Corpuscular Volume 88.3 fL (83.0-100.0); Mean Platelet Volume 11.1 fL (9.4-12.4); Monocytes # 0.8 K/mcL (0.0-1.3); Monocytes % 9.7 %; Platelet Count 249 K/mcL (140-400); Red Blood Count 4.62 M/mcL (3.82-4.97); Red Cell Distribution Width 12.6 % (11.5-14.5); Segmented Neutrophils % 71.2 %
[2016-03-29 06:19] LABS: Alanine Aminotransferase 16 Units/L (0-55); Albumin 3.4 g/dL (3.5-5.0); Albumin/Globulin Ratio 0.9 (1.1-2.2); Alkaline Phosphatase 79 Units/L (38-126); Aspartate Amino Transferase 15 Units/L (5-34); BUN/Creatinine Ratio 7 (6-26); Bilirubin,Direct 0.3 mg/dL (0.0-0.5); Bilirubin,Indirect 0.5 mg/dL (0.0-1.2); Bilirubin,Total 0.8 mg/dL (0.2-1.2); Blood Urea Nitrogen 6 mg/dL (7-20); Calcium 9.4 mg/dL (8.6-10.8); Carbon Dioxide 27 mEq/L (19-29); Chloride 100 mEq/L (98-109); Globulin 3.6 g/dL (2.4-3.5); Glucose 125 mg/dL (70-99); Magnesium 1.9 mg/dL (1.6-2.6); Osmolality,Calculated 283 (280-300); Potassium 3.7 mEq/L (3.5-4.5); Sodium 137 mEq/L (136-145); eGFR For African Americans > 60 (> 60); eGFR For Non-African Americans > 60 (> 60)
[2016-03-29 06:44] LABS: Neutrophils # 5.8 K/mcL (1.6-8.9)
[2016-03-29] MEDS: Pantoprazole 40 MG VIAL IVP SCH (07:26)
[2016-03-29 10:28] VITALS: BP 115/74
--- NOTE | 2016-03-29 10:54 | Discharge Summary ---
Date of Encounter: 03/29/16 Time of Encounter: 10:49 - Discharge Diagnosis (1) Acute generalized abdominal pain Priority: Primary Status: Acute (2) Dehydration Priority: Secondary Status: Acute (3) Gastritis Priority: Secondary Status: Acute Qualifiers: Gastritis type: unspecified gastritis Chronicity: unspecified Gastritis bleeding: without bleeding Qualified Code(s): K29.70 - Gastritis, unspecified , without bleeding - Discharge Medications Prescriptions: LORazepam [Ativan] 1 mg PO BID #10 tablet Ondansetron [Zofran] 4 mg PO Q8HR PRN 5 Days PRN Reason: Nausea Home Medications: Ibuprofen [Motrin] 600 mg PO Q8HR PRN 5 Days 03/09/15 [Rx] Dicyclomine [Bentyl] 10 mg PO QID PRN #14 capsule 03/22/15 [Rx] LORazepam [Ativan] 1 mg PO BID #10 tablet 03/29/16 [Rx] Ondansetron [Zofran] 4 mg PO Q8HR PRN 5 Days 03/29/16 [Rx] Allergies/Adverse Reactions: Allergies codeine Allergy (Intermediate, Verified 03/25/16 08:43) Hives Procedures/tests Complete & Pending: Procedures Performed prior 72 hours Category Date Time Status MR abdomen wo con [MR] Stat MRI 03/28/16 13:52 Completed Date of admission: 03/25/16 04:07 Primary care physician: Randy Naranjo MD Consults: 03/25/16 06:56 Consult to Nurse Navigator [CONS] Routine Comment: 03/27/16 08:00 Consult to Gastroenterology [CONS] Routine Consulting Provider: Gastroenterology Clemencia Reason for Consult: abd pain, persistent n-v Call Completed: No 03/27/16 09:43 Consult to Occupational Therapy [CONS] Routine Comment: Evaluate, develop and implement POC Consult to Physical Therapy [CONS] Routine Comment: Evaluate, develop and implement POC Discharging clinician: Alex Horton Anticipated date of discharge: 03/29/16 - Patient Status Disposition: Home, Self-Care Condition: Fair Functional capacity at discharge: independent ambulation Overall status at discharge: patient is back to baseline - Discharge Instructions Follow Up With: Randy Naranjo MD [Primary Care Provider] - 04/02/16 10:15 am - Diet and Activity Activity: increase activity as tolerated Diet: advance to your usual diet Interval History: Ms. Tamayo is a 50 year old female history significant for borderline diabetes mellitus, hypertension, dyslipidemia, GERD/hiatal hernia/?esophageal spasm, chronic gastritis, irritable bowel syndrome, diverticulosis coli, migraine headaches, H/O multiple TIAs, ?AMI per pt, osteoarthritis, hypothyroidism during , obesity, nonsmoker The patient was visited and interviewed and examined. The patient is admitted to [facility] via the emergency department when she presents by EMS services from home with complaints of intractable abdominal pain nausea and vomiting. Symptoms began approximately one day prior to presentation with the patient experiencing diffuse pain. Denied any initial diarrheal stools constipation bloody stools. She did use cramping pain with nausea and vomiting. Vomitus was bilious or undigested food. Not any overt fevers but a general feeling of feverishness and chills and drowsiness and diffuse myalgias experience. He acknowledged some feeling of listlessness and shortness of breath but without pain without cough without any murmur or lower respiratory congestion.. Loose stools on the day of admission watery some mucus. Pain when most severe rated as a 10/10 severity. Generalized. Denies any medication dietary or recreational descriptions. 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 She denies any recent antibiotic therapies. Reports being current with influenza vaccination and pneumococcal. No travels abroad or suspect food ingestions. Findings in the ED : Temperature 98.5 pulse 70-87 respirations 16-20 BP 132-158/82-84 respirations 97% at room air. WBC 10.1 hemoglobin 14.2 platelets 286,000. Differential normal. Metabolic panel normal except sodium 134 glucose 168-81. BUN 11 creatinine 0.83. Troponin 0.00. Salicylates less than 5. Acetaminophen less than 1. Ethyl alcohol less than 10. Urinalysis large glucose trace ketone. Urine drug screen negative. Chest x-ray showed no acute or active cardiopulmonary process. CT of abdomen to pelvis without contrast demonstrated tiny sliding and paraesophageal hiatal hernia. Lower lobe atelectasis. Mild cardiomegaly. No evidence for effusion infiltrate edema or pneumothorax. No osseous abnormalities. Granulomatous disease of the lingula and spleen with isolated calcifications. Chronic diverticulosis without evidence for diverticulitis. Mild mesenteric lymphadenopathy with stranding area status post cholecystectomy. Status post hysterectomy. Preliminary impression suggest abdominal pain with nausea vomiting and episode of loose diarrheal stool suggestive of acute gastroenteritis-colitis. The dictation is impressive for degree of intoxication and drowsiness.. Patient is acutely ill and uncomfortable at rest. Vital signs however are relatively benign. Screening studies also benign. CT of the abdomen suggest possible localized/minimal mesenteric lymphadenitis - panniculitis. The patient's history of working with [employer] patients with recent viral syndromes may serve as a source for illness. The patient is at risk for further acute clinical decline and morbidity given the presenting chief complaints, clinical findings and comorbidities. Workup and treatments will progress comprehensively. Cumulative laboratory and radiographic data base was reviewed, considered and discussed. Pertinent ancillary medical records including ECW and PCI documentation, when available was reviewed and considered. Given the patient's presenting concerns, past medical history, clinical findings and symptoms, she is admitted at this time will undergo further evaluation and disposition. Orders were written as per the computerized physician order planner system.......................................................................... .................... Consultative opinions will be sought as clinical circumstances justify. Pain management needs will be addressed. Laboratory and radiographic data base will be updated as appropriate. Studies include: Cultures of blood urine sputum, GI panel, C.diff toxin, UA, cardiac injury panel, BNP, metabolic and hematologic panel, magnesium, phosphorus, ionized calcium, thyroid panel, lipid profile, A1c, C-peptide, CRP , sedimentation rate, respiratory infection profile, respiratory virus panel, blood gas, UDS, ETOH, APAP, ASA, lactic acid, serologies, etc. Precautions: Aspiration, fall, delirium protocol/surveillance initiated. Telemetry with continuous hemodynamic monitoring and pulse oximetry initiated. Empiric antibody coverage: Intravenous ciprofloxacin and metronidazole pending culture data. Special studies: CT abdomen/pelvis, chest x-ray, telemetry, EKG. Bowel rest is imposed. NPO/clear liquids diet and advance as clinical circumstances permit. Antiemetic probiotica and prokinetic therapies. Oral carafate suspension. Rehydration therapy. Pulmonary toilet: Incentive spirometry. When necessary aerosol bronchodilator, mucolytic, antitussive. Supplemental oxygen. Corticosteroid therapy prn. CPAP/ BiPAP supplemental oxygen delivery prn. Aerosol Mucomyst therapy prn. Fluid and electrolyte repletion efforts will proceed. Careful attention to fluid balance and renal recovery will be emphasized. Avoidance of nephrotoxic exposure and adverse drug drug interaction in the setting of impaired renal function will be monitored closely. Acute coronary syndrome protocol/surveillance initiated. DVT and PUD prophylaxis initiated: PPI/H2 tete therapy, intermittent pneumatic cuffs/TEDs. Subcutaneous heparin/Lovenox. Early ambulation will be encouraged. Immunization updates recommended. Influenza and pneumococcal vaccinations as part of ongoing preventative healthcare recommendations strongly recommended. Smoking cessation counseling briefly addressed. Patient is a nonsmoker. Advanced care directive discussion briefly addressed. Patient does not declare any healthcare restrictions at this time. Cardiovascular risk appraisal and cardiovascular risk reduction efforts will be emphasized. Physical and occupational therapy may be consulted to evaluate patient's functional capacity and progress mobility if her circumstances justify. Nutrition/diabetes education counseling may be considered as circumstances justify. Outpatient medication schedules will be reviewed, confirmed and facilitated as appropriate. Reconciliation of home treatments including adjustments, substitutions and reintroduction into the treatment regimen will address necessary maintenance therapies for chronic pre-existing medical conditions. Plan of care has been reviewed and discussed in detail with the patient. Questions addressed. Hospital course will be dependent upon collective clinical findings, treatment response and potential consultative interventions. Patient is at risk for further acute clinical decline and due to her presenting chief complaints, findings and comorbidities. Condition is serious. Prognosis is cautiously optimistic. CODE STATUS is full. Hospital course: Ms. Tamayo is a 50 year old female Patient with abdominal pain which was persistent, hwever it has improved today and has finally tolerated diet. There was no evidence of diverticulitis or colitis in the ct. However, there is evidence of panniculitis. No Leukocytosis, no fever since admission. Her hypokalemia has been corrected with supplementation of potassium via IV. Had an unremarkable EGD. MRCP ruled out CBD stones. Viral panel negative. GI consult appreciated, the patient underwent EGD, report to the ED was essentially unremarkable. Will discharge the patient home today, there is also a componen of anxiety involved, will follow up as outpatient with her pcp. The plan of care was discussed in detail with the patient. She expressed understanding. - Time Spent with Patient Total time spent providing and/or coordinating discharge services: Greater than 30 minutes - Constitutional Vitals: Temp Pulse Resp BP Pulse Ox 98.2 F 91 16 115/74 95 03/29/16 10:28 03/29/16 10:28 03/29/16 10:28 03/29/16 10:28 03/29/16 10:28 General appearance: Present: A&O X 3, obese, severe distress, answers questions appropriately. Absent: cooperative - Head Head exam: Present: atraumatic, normocephalic - Eye Eye exam: Present: PERRL, conjuntiva pink, sclera anicteric Pupils: Present: PERRL - Neck Neck exam general surgery: Present: supple, trachea midline. Absent: lymphadenopathy - Respiratory Respiratory exam: Present: CTAB. Absent: accessory muscle use, rales, rhonchi, wheezes - Cardiovascular Cardiovascular exam: Present: RRR, +S1, +S2. Absent: diastolic murmur, gallop, rubs, systolic murmur - GI/Abdominal GI/Abdominal exam: Present: normal bowel sounds, soft, no peritoneal signs. Absent: distended, tenderness - Extremities Exam Extremities exam: Present: warm, radial pulses palpable and symetrical. Absent : calf tenderness, cyanotic, pedal edema - Neurological Exam Neurological exam: Present: CN II-XII intact, oriented X3, no focal deficits. Absent: pronater drift, facial droop, speech deficit - Skin Skin exam: Present: dry, intact
== END 2016-03-29 12:10 | disposition home or self-care (01) ==
LOC: 3ANU 23:36 → EMEROO 23:36 → SUATTDRO 03-25 04:07 → 3ANU 03-25 04:48
PROVIDERS: ADMIT Internal Medicine; ATTEND Internal Medicine
PROC: ENDOEBX (2016-03-27 14:30)

== ENCOUNTER 2016-03-30 19:16 | Inpatient (IN) ==
[2016-03-30] MEDS ORDERED: Ondansetron 4 MG/2 ML VIAL IV STA (19:26)
[2016-03-30] MEDS ORDERED: 0.9 % Sodium Chloride 1,000 ML IV ONE (19:26)
[2016-03-30 19:47] LABS: Basophils % 0.2 %; Hemoglobin 14.7 g/dL (11.5-15.4); Immature Granulocytes % 0.3 % (0-4); Lymphocytes # 0.5 K/mcL (0.6-4.6); Lymphocytes % 3.8 %; Mean Corpuscular Hemoglobin 30.1 pg (28.0-33.3); Mean Corpuscular Volume 85.9 fL (83.0-100.0); Mean Platelet Volume 9.9 fL (9.4-12.4); Monocytes # 0.2 K/mcL (0.0-1.3); Monocytes % 1.3 %; Neutrophils # 11.3 K/mcL (1.6-8.9); Platelet Count 393 K/mcL (140-400); Red Blood Count 4.89 M/mcL (3.82-4.97); Red Cell Distribution Width 12.5 % (11.5-14.5); Segmented Neutrophils % 94.4 %; VBG PH 7.48 pH Units (7.32-7.42)
[2016-03-30 20:00] LABS: BUN/Creatinine Ratio 10 (6-26); Blood Urea Nitrogen 9 mg/dL (7-20); Calcium 10.1 mg/dL (8.6-10.8); Carbon Dioxide 25 mEq/L (19-29); Chloride 98 mEq/L (98-109); Glucose 139 mg/dL (70-99); Osmolality,Calculated 285 (280-300); Potassium 3.8 mEq/L (3.5-4.5); Sodium 137 mEq/L (136-145); eGFR For African Americans > 60 (> 60); eGFR For Non-African Americans > 60 (> 60)
[2016-03-30 20:02] LABS: Bilirubin,Direct 0.3 mg/dL (0.0-0.5); Bilirubin,Indirect 0.4 mg/dL (0.0-1.2); Bilirubin,Total 0.7 mg/dL (0.2-1.2); Globulin 4.1 g/dL (2.4-3.5); Total Protein 8.2 g/dL (6.0-8.3)
[2016-03-30 20:03] LABS: Albumin 4.1 g/dL (3.5-5.0)
[2016-03-30] MEDS ORDERED: Dexamethasone 4 MG/ML VIAL IVP ONE (20:18)
--- NOTE | 2016-03-30 20:20 | Emergency Department Note ---
START Narrative - START START: I examined this patient and my medical decision-making was reviewed with the REFERENCE LIBRARIAN/PA/Advanced Practice Nurse/Resident Physician. I agree with the documented findings, disposition and treatment plan as described except to the extent set forth below. ED attending note: I saw this Patient with the emergency medicine resident Dr. Ceja. Please see a copy of his note for details of the H&P, evaluation, management and disposition of this emergency Department patient. We independently had [id number] contact with the patient. Briefly: A 50-year-old female recently discharged from [facility] after 5 day stay for multiple tests performed but no definitive diagnosis. Patient had persistent headache low-grade fever and some neck discomfort. Patient is concerned she might a "ear infection". Patient said some bilious vomiting but abdomen is surgically benign. Her mental status is waxing and waning. We have provided 45 minutes of critical care service this patient. 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 Patient be getting parenteral antivirals and antibiotics. Head CT is pending as well as lumbar puncture and CSF analysis. Admission is anticipated. Disposition pending
[2016-03-30] MEDS ORDERED: Vancomycin (wt based) 1,000 MG VIAL IV ONE (20:21)
[2016-03-30] MEDS ORDERED: Acyclovir 1,000 MG in D5% in Water 250 ML IVPB ONE (20:21)
[2016-03-30] MEDS ORDERED: Vancomycin 1,500 MG in D5% in Water 250 ML IVPB ONE (20:30)
[2016-03-30] MEDS ORDERED: Ondansetron 4 MG/2 ML VIAL IVP ONE (20:41)
--- NOTE | 2016-03-30 20:44 | Emergency Department Note ---
Disposition Clinical Impression: Meningitis, Fever, Vomiting Disposition: Admitted As Inpatient Condition: Fair Referrals: Randy Naranjo MD [Primary Care Provider] - Forms: ED Satisfaction Letter Time of Disposition: 22:43 Nausea/Vomiting/Diarrhea HPI - General Chief complaint: ED Nausea/Vomiting/Diarrhea Stated complaint: n/v/d/ Time Seen by Provider: 03/30/16 19:18 Source: patient, EMS Mode of arrival: EMS Limitations: no limitations Nursing Notes Reviewed: Yes Vital Signs Reviewed: Yes - History of Present Illness HPI Narrative: 50-year-old female presents with chief complaints of headache, neck pain, fever and chills, nausea, vomiting, and diarrhea. She was just discharged from the hospital yesterday for abdominal pain with nausea, vomiting, and diarrhea. She states that her headache and neck pain began while in the hospital and have worsened over the last 24 hours. Her hospital evaluation included CT scan of the abdomen and pelvis, upper endoscopy and MRCP that did not elucidate a cause of her symptoms. She states that she has multiple sick contacts at work with the "stomach flu." - Related Data Previous Rx's Medication Instructions Recorded Ibuprofen [Motrin] 600 mg PO Q8HR PRN 5 Days 03/09/15 Dicyclomine [Bentyl] 10 mg PO QID PRN #14 capsule 03/22/15 LORazepam [Ativan] 1 mg PO BID #10 tablet 03/29/16 Ondansetron [Zofran] 4 mg PO Q8HR PRN 5 Days 03/29/16 Allergies Allergy/AdvReac Type Severity Reaction Status Date / Time codeine Allergy Intermediate Hives Verified 03/25/16 08:43 All systems ED: reviewed and negative except as stated. Past Medical History - Past Medical History Attestation: Yes The following information was validated with the patient. 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 - Chest Chest inspection: Present: normal inspection, symmetric chest wall rise - Respiratory Respiratory exam: Clear to auscultation bilaterally without wheezes rales or rhonchi Cardiovascular Cardiovascular exam: Present: regular rate, normal rhythm, normal heart sounds - Abdominal Exam Abdominal exam: Present: soft, Non-Tender. Absent: tenderness, distention, guarding, rebound, rigidity - Extremities Exam Extremities exam: Present: normal inspection, full ROM - Expanded Lower Extremity Exam Hip/Pelvis exam: Present: normal inspection, full ROM - Back Exam Back exam: Present: normal inspection, full ROM. Absent: tenderness, CVA tenderness (R), CVA tenderness (L) - Neurological Exam Neurological exam: Present: Awakens to voice, oriented X3, CN II-XII intact - Psychiatric Psychiatric exam: Present: normal affect, normal mood - Skin Skin exam: Present: warm, dry, intact, normal color - General Limitations: no limitations General appearance: lethargic Course - Reevaluation(s) Reevaluation #1: Labs show mild cytosis with left shift, but otherwise essentially normal. Patient is agreeable to lumbar puncture. Signed consent on chart. CT scan shows no acute findings. Time: 22:09 Reevaluation #2: Accepted by Dr. Dee. Vital Signs Temperature 100.0 F H 03/30/16 19:17 Pulse Rate 97 03/30/16 19:17 Respiratory Rate 18 03/30/16 19:17 Blood Pressure 171/105 03/30/16 19:17 O2 Sat by Pulse Oximetry 97 03/30/16 19:17 Temperature 100.0 F H 03/30/16 19:17 Pulse Rate 86 03/30/16 21:21 Respiratory Rate 16 03/30/16 21:21 Blood Pressure 178/101 03/30/16 21:21 O2 Sat by Pulse Oximetry 96 03/30/16 21:21 Oxygen Delivery Oxygen Delivery Room Air Procedures - Lumbar Puncture Consent Obtained: written consent Time Out Performed: Yes Patient Position: upright Skin Prep: Povidone-Iodine 1% Local Anesthetic: lidocaine 1%, with epi Amount of anesthesia used (mL): 3 Spinal Needle Gauge: 22G Interspace Used: L3-L4 Fluid Initially Obtained: clear Additional Comments: Opening pressure grossly normal. Complications: none Nausea/Vomiting/Diarrhea - Lab Data Result diagrams: 03/30/16 19:40 03/30/16 19:40 Lab Results 03/30/16 03/30/16 03/30/16 Range/Units 19:40 19:40 19:40 WBC 12.0 H (4.3-11.1) K/mcL RBC 4.89 (3.82-4.97) M/mcL Hgb 14.7 (11.5-15.4) g/dL Hct 42.0 (35.3-44.9) % MCV 85.9 (83.0-100.0) fL MCH 30.1 (28.0-33.3) pg MCHC 35.0 (31.6-35.5) g/dL RDW 12.5 (11.5-14.5) % Plt Count 393 D (140-400) K/mcL MPV 9.9 (9.4-12.4) fL Immature Gran % 0.3 (0-4) % Seg Neutrophils % 94.4 % Lymphocytes % 3.8 % Monocytes % 1.3 % Eosinophils % 0.0 % Basophils % 0.2 % Neutrophils # 11.3 H (1.6-8.9) K/mcL Lymphocytes # 0.5 L (0.6-4.6) K/mcL Monocytes # 0.2 (0.0-1.3) K/mcL Eosinophils # 0.0 (0.0-0.6) K/mcL Basophils # 0.0 (0.0-0.2) K/mcL VBG pH (7.32-7.42) pH Units VBG pCO2 (41-51) mmHg VBG pO2 (25-40) mmHg VBG HCO3 (21-27) mEq/L Sodium 137 (136-145) mEq/L Potassium 3.8 (3.5-4.5) mEq/L Chloride 98 (98-109) mEq/L Carbon Dioxide 25 (19-29) mEq/L BUN 9 (7-20) mg/dL Creatinine 0.87 (0.57-1.11) mg/dL Est GFR ( Amer) > 60 (> 60) Est GFR (Non-Af Amer) > 60 (> 60) BUN/Creatinine Ratio 10 (6-26) Glucose 139 H (70-99) mg/dL Calculated Osmolality 285 (280-300) Lactic Acid 1.4 (0.5-2.2) mmol/L Calcium 10.1 (8.6-10.8) mg/dL Total Bilirubin (0.2-1.2) mg/dL Direct Bilirubin (0.0-0.5) mg/dL Indirect Bilirubin (0.0-1.2) mg/dL AST (5-34) Units/L ALT (0-55) Units/L Alkaline Phosphatase (38-126) Units/L Troponin I (0-0.03) ng/mL Serum Total Protein (6.0-8.3) g/dL Albumin (3.5-5.0) g/dL Globulin (2.4-3.5) g/dL Albumin/Globulin Ratio (1.1-2.2) 03/30/16 03/30/16 03/30/16 Range/Units 19:40 19:40 19:40 WBC (4.3-11.1) K/mcL RBC (3.82-4.97) M/mcL Hgb (11.5-15.4) g/dL Hct (35.3-44.9) % MCV (83.0-100.0) fL MCH (28.0-33.3) pg MCHC (31.6-35.5) g/dL RDW (11.5-14.5) % Plt Count (140-400) K/mcL MPV (9.4-12.4) fL Immature Gran % (0-4) % Seg Neutrophils % % Lymphocytes % % Monocytes % % Eosinophils % % Basophils % % Neutrophils # (1.6-8.9) K/mcL Lymphocytes # (0.6-4.6) K/mcL Monocytes # (0.0-1.3) K/mcL Eosinophils # (0.0-0.6) K/mcL Basophils # (0.0-0.2) K/mcL VBG pH 7.48 H (7.32-7.42) pH Units VBG pCO2 39 L (41-51) mmHg VBG pO2 48 H (25-40) mmHg VBG HCO3 29.0 H (21-27) mEq/L Sodium (136-145) mEq/L Potassium (3.5-4.5) mEq/L Chloride (98-109) mEq/L Carbon Dioxide (19-29) mEq/L BUN (7-20) mg/dL Creatinine (0.57-1.11) mg/dL Est GFR ( Amer) (> 60) Est GFR (Non-Af Amer) (> 60) BUN/Creatinine Ratio (6-26) Glucose (70-99) mg/dL Calculated Osmolality (280-300) Lactic Acid (0.5-2.2) mmol/L Calcium (8.6-10.8) mg/dL Total Bilirubin 0.7 (0.2-1.2) mg/dL Direct Bilirubin 0.3 (0.0-0.5) mg/dL Indirect Bilirubin 0.4 (0.0-1.2) mg/dL AST 21 (5-34) Units/L ALT 22 (0-55) Units/L Alkaline Phosphatase 94 (38-126) Units/L Troponin I 0.01 (0-0.03) ng/mL Serum Total Protein 8.2 (6.0-8.3) g/dL Albumin 4.1 D (3.5-5.0) g/dL Globulin 4.1 H (2.4-3.5) g/dL Albumin/Globulin Ratio 1.0 L (1.1-2.2) 03/30/16 Range/Units 19:40 WBC (4.3-11.1) K/mcL RBC (3.82-4.97) M/mcL Hgb (11.5-15.4) g/dL Hct (35.3-44.9) % MCV (83.0-100.0) fL MCH (28.0-33.3) pg MCHC (31.6-35.5) g/dL RDW (11.5-14.5) % Plt Count (140-400) K/mcL MPV (9.4-12.4) fL Immature Gran % (0-4) % Seg Neutrophils % % Lymphocytes % % Monocytes % % Eosinophils % % Basophils % % Neutrophils # (1.6-8.9) K/mcL Lymphocytes # (0.6-4.6) K/mcL Monocytes # (0.0-1.3) K/mcL Eosinophils # (0.0-0.6) K/mcL Basophils # (0.0-0.2) K/mcL VBG pH (7.32-7.42) pH Units VBG pCO2 (41-51) mmHg VBG pO2 (25-40) mmHg VBG HCO3 (21-27) mEq/L Sodium (136-145) mEq/L Potassium (3.5-4.5) mEq/L Chloride (98-109) mEq/L Carbon Dioxide (19-29) mEq/L BUN (7-20) mg/dL Creatinine (0.57-1.11) mg/dL Est GFR ( Amer) (> 60) Est GFR (Non-Af Amer) (> 60) BUN/Creatinine Ratio (6-26) Glucose (70-99) mg/dL Calculated Osmolality (280-300) Lactic Acid (0.5-2.2) mmol/L Calcium (8.6-10.8) mg/dL Total Bilirubin (0.2-1.2) mg/dL Direct Bilirubin (0.0-0.5) mg/dL Indirect Bilirubin (0.0-1.2) mg/dL AST (5-34) Units/L ALT (0-55) Units/L Alkaline Phosphatase 94 (38-126) Units/L Troponin I (0-0.03) ng/mL Serum Total Protein (6.0-8.3) g/dL Albumin (3.5-5.0) g/dL Globulin (2.4-3.5) g/dL Albumin/Globulin Ratio (1.1-2.2) - Radiology Data Radiology results reviewed: Yes I reviewed the patient's radiology results. - EKG Data EKG attestation: Yes I reviewed and interpreted this EKG. EKG results narrative: Normal sinus rhythm at 97 with normal axis and intervals. No ST elevation or depression. Nonspecific ST changes unchanged from 03/25/2016.
[2016-03-30 22:52] LABS: Red Blood Cell,CSF < 0.002 M/mcL
[2016-03-30 23:07] LABS: Appearance,CSF Clear (Clear)
[2016-03-30 23:10] LABS: Glucose,CSF 73 mg/dL (40-70); Total Protein,CSF 28 mg/dL (15-45)
[2016-03-30] MEDS ORDERED: Naloxone 0.4 MG/ML INJ IVP PRN (23:36)
[2016-03-30] MEDS ORDERED: Ketorolac 30 MG/ML VIAL IVP PRN ×2 (23:36→23:59)
[2016-03-30] MEDS ORDERED: *HR* OxyCODONE/APAP 5/325 TABLET PO PRN (23:51)
[2016-03-30] MEDS ORDERED: Ondansetron 4 MG/2 ML VIAL IVP PRN (23:55)
[2016-03-31] MEDS: *HR* Promethazine 25 MG/ML VIAL IVP PRN ×2 (00:08→21:10)
--- NOTE | 2016-03-31 00:15 | Internal Med History&Physical ---
Date of Encounter: 03/30/16 Time of Encounter: 21:30 Internal Medicine - H&P: HPI Chief complaint: Headache, nausea, vomiting x 2 days Admitted From: Emergency Dept Plans for Post Hospital Care: Home History of present illness: Ms. Tamayo is a 50 year old female 50-year-old female presents with chief complaints of headache, neck pain, fever and chills, nausea, vomiting, and diarrhea. She was just discharged from the hospital yesterday for abdominal pain with nausea, vomiting, and diarrhea. 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 sHE WAS DISCHARGED HOME 2 DAYS AGO, THESE SYMPTOMS STARTED WHILE SHE WAS HOSPITALIZED, but worsened with 24 hours of arriving home. Recent studies include CT abdomen/pelvis, MRCP and EGD, all of which did not confirm a diagnosis. Besides the lesion in her legs, she reports no other rash, no blurry vision. She reports fever, chills. No urinary syptoms. She reports a headache, that is throbbing, she report photophobia. 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 No history of herpes, no history of meningitis. She is FULL CODE as per discussion. She nominates her spouse (Gerardo Tamayo), as her NOK/POA. Medical history: Reports: arthritis, asthma, diabetes, GERD, hyperlipidemia, hypertension, migraine, myocardial infarction, osteoporosis, thyroid disease, TIA, other Surgical history: Reports: angioplasty/stent, , cholecystectomy, herniorrhaphy, hysterectomy, ISSA/BSO, other Psychiatric history: Reports: anxiety, depression, other Smoking Status: Never smoker Smokeless Tobacco Status: No Alcohol use: Reports: none Drug use: Reports: none Vital Signs Temperature 100.0 F H 03/30/16 19:17 Pulse Rate 97 03/30/16 19:17 Respiratory Rate 18 03/30/16 19:17 Blood Pressure 171/105 03/30/16 19:17 O2 Sat by Pulse Oximetry 97 03/30/16 19:17 Temperature 100.0 F H 03/30/16 19:17 Pulse Rate 86 03/30/16 21:21 Respiratory Rate 16 03/30/16 21:21 Blood Pressure 178/101 03/30/16 21:21 O2 Sat by Pulse Oximetry 96 03/30/16 21:21 O/E: in distress, ill/toxic looking, lethargic HEENT: Not pale, anicteric, afebrile, acyanotic, no JVD, neck rather hypertonic (likely related to underlying paraspinal spasm). Pharynx-tonsilar complex not acutely inflamed. Chest: CTAB, Heart/CVS: RRR, HS1/2, no murmur Abdomen: soft, non-tender, no masses FLUXER: AAO x 3, no gross focal neurological deficits, moves all limbs spontaneously. Muscle power=5/5 in all extremities, kernigs is negative, neck has increased joanna Skin: 2 puntate lesion in the left lower extremity, 1 on the right. no erythema marginatum Extremities: no normal pedal pulses, no calf tenderness, no pedal edema Lab Results 03/30/16 03/30/16 03/30/16 Range/Units 19:40 19:40 19:40 WBC 12.0 H (4.3-11.1) K/mcL RBC 4.89 (3.82-4.97) M/mcL Hgb 14.7 (11.5-15.4) g/dL Hct 42.0 (35.3-44.9) % MCV 85.9 (83.0-100.0) fL MCH 30.1 (28.0-33.3) pg MCHC 35.0 (31.6-35.5) g/dL RDW 12.5 (11.5-14.5) % Plt Count 393 D (140-400) K/mcL MPV 9.9 (9.4-12.4) fL Immature Gran % 0.3 (0-4) % Seg Neutrophils % 94.4 % Lymphocytes % 3.8 % Monocytes % 1.3 % Eosinophils % 0.0 % Basophils % 0.2 % Neutrophils # 11.3 H (1.6-8.9) K/mcL Lymphocytes # 0.5 L (0.6-4.6) K/mcL Monocytes # 0.2 (0.0-1.3) K/mcL Eosinophils # 0.0 (0.0-0.6) K/mcL Basophils # 0.0 (0.0-0.2) K/mcL VBG pH (7.32-7.42) pH Units VBG pCO2 (41-51) mmHg VBG pO2 (25-40) mmHg VBG HCO3 (21-27) mEq/L Sodium 137 (136-145) mEq/L Potassium 3.8 (3.5-4.5) mEq/L Chloride 98 (98-109) mEq/L Carbon Dioxide 25 (19-29) mEq/L BUN 9 (7-20) mg/dL Creatinine 0.87 (0.57-1.11) mg/dL Est GFR ( Amer) > 60 (> 60) Est GFR (Non-Af Amer) > 60 (> 60) BUN/Creatinine Ratio 10 (6-26) Glucose 139 H (70-99) mg/dL Calculated Osmolality 285 (280-300) Lactic Acid 1.4 (0.5-2.2) mmol/L Calcium 10.1 (8.6-10.8) mg/dL Total Bilirubin (0.2-1.2) mg/dL Direct Bilirubin (0.0-0.5) mg/dL Indirect Bilirubin (0.0-1.2) mg/dL AST (5-34) Units/L ALT (0-55) Units/L Alkaline Phosphatase (38-126) Units/L Troponin I (0-0.03) ng/mL Serum Total Protein (6.0-8.3) g/dL Albumin (3.5-5.0) g/dL Globulin (2.4-3.5) g/dL Albumin/Globulin Ratio (1.1-2.2) 03/30/16 03/30/16 03/30/16 Range/Units 19:40 19:40 19:40 WBC (4.3-11.1) K/mcL RBC (3.82-4.97) M/mcL Hgb (11.5-15.4) g/dL Hct (35.3-44.9) % MCV (83.0-100.0) fL MCH (28.0-33.3) pg MCHC (31.6-35.5) g/dL RDW (11.5-14.5) % Plt Count (140-400) K/mcL MPV (9.4-12.4) fL Immature Gran % (0-4) % Seg Neutrophils % % Lymphocytes % % Monocytes % % Eosinophils % % Basophils % % Neutrophils # (1.6-8.9) K/mcL Lymphocytes # (0.6-4.6) K/mcL Monocytes # (0.0-1.3) K/mcL Eosinophils # (0.0-0.6) K/mcL Basophils # (0.0-0.2) K/mcL VBG pH 7.48 H (7.32-7.42) pH Units VBG pCO2 39 L (41-51) mmHg VBG pO2 48 H (25-40) mmHg VBG HCO3 29.0 H (21-27) mEq/L Sodium (136-145) mEq/L Potassium (3.5-4.5) mEq/L Chloride (98-109) mEq/L Carbon Dioxide (19-29) mEq/L BUN (7-20) mg/dL Creatinine (0.57-1.11) mg/dL Est GFR ( Amer) (> 60) Est GFR (Non-Af Amer) (> 60) BUN/Creatinine Ratio (6-26) Glucose (70-99) mg/dL Calculated Osmolality (280-300) Lactic Acid (0.5-2.2) mmol/L Calcium (8.6-10.8) mg/dL Total Bilirubin 0.7 (0.2-1.2) mg/dL Direct Bilirubin 0.3 (0.0-0.5) mg/dL Indirect Bilirubin 0.4 (0.0-1.2) mg/dL AST 21 (5-34) Units/L ALT 22 (0-55) Units/L Alkaline Phosphatase 94 (38-126) Units/L Troponin I 0.01 (0-0.03) ng/mL Serum Total Protein 8.2 (6.0-8.3) g/dL Albumin 4.1 D (3.5-5.0) g/dL Globulin 4.1 H (2.4-3.5) g/dL Albumin/Globulin Ratio 1.0 L (1.1-2.2) 03/30/16 Range/Units 19:40 WBC (4.3-11.1) K/mcL RBC (3.82-4.97) M/mcL Hgb (11.5-15.4) g/dL Hct (35.3-44.9) % MCV (83.0-100.0) fL MCH (28.0-33.3) pg MCHC (31.6-35.5) g/dL RDW (11.5-14.5) % Plt Count (140-400) K/mcL MPV (9.4-12.4) fL Immature Gran % (0-4) % Seg Neutrophils % % Lymphocytes % % Monocytes % % Eosinophils % % Basophils % % Neutrophils # (1.6-8.9) K/mcL Lymphocytes # (0.6-4.6) K/mcL Monocytes # (0.0-1.3) K/mcL Eosinophils # (0.0-0.6) K/mcL Basophils # (0.0-0.2) K/mcL VBG pH (7.32-7.42) pH Units VBG pCO2 (41-51) mmHg VBG pO2 (25-40) mmHg VBG HCO3 (21-27) mEq/L Sodium (136-145) mEq/L Potassium (3.5-4.5) mEq/L Chloride (98-109) mEq/L Carbon Dioxide (19-29) mEq/L BUN (7-20) mg/dL Creatinine (0.57-1.11) mg/dL Est GFR ( Amer) (> 60) Est GFR (Non-Af Amer) (> 60) BUN/Creatinine Ratio (6-26) Glucose (70-99) mg/dL Calculated Osmolality (280-300) Lactic Acid (0.5-2.2) mmol/L Calcium (8.6-10.8) mg/dL Total Bilirubin (0.2-1.2) mg/dL Direct Bilirubin (0.0-0.5) mg/dL Indirect Bilirubin (0.0-1.2) mg/dL AST (5-34) Units/L ALT (0-55) Units/L Alkaline Phosphatase 94 (38-126) Units/L Troponin I (0-0.03) ng/mL Serum Total Protein (6.0-8.3) g/dL Albumin (3.5-5.0) g/dL Globulin (2.4-3.5) g/dL Albumin/Globulin Ratio (1.1-2.2) cxr; no acute cardiopulmonary finding Head CT: No acute cardiopulmonary findings. IMP Generalized bodyaches, myalgia, in the setting of normal CSF chemistry, punctate skin lesion. Differential include a viral illness, lyme disease, no classical ricketsia rash observed. Diffuse abdominal pain:Gastroeneteritis, related to a viral illness, she has a personal history of chronic gastritis/IBS Chronic morbidities arthritis, asthma, diabetes, GERD, hyperlipidemia, hypertension, migraine, CAD, osteoporosis, thyroid disease, plan Admit RL @ 75 Optimal pain and emesis control f/u LP viral cultures Ceftriaxone and Doxycycline IV IV protonix 40mg QD Obtain CRP, blood and urine cultures Continue other medications of chronic morbidities I discussed my assessment and plan with the patient, she verbalized understanding and is agreeable to admission. She is admitted for evaluation of symptoms. Past Med Surg Social Fam HX - Past Medical History Medical history: arthritis, asthma, diabetes, GERD, hyperlipidemia, hypertension , migraine, myocardial infarction, osteoporosis, thyroid disease, TIA, other Psychiatric history: anxiety, depression, other - Past Surgical History Surgical History: angioplasty/stent, , cholecystectomy, herniorrhaphy, hysterectomy, ISSA/BSO, other - Social History Smoking Status: Never smoker Smokeless Tobacco Status: No Alcohol use: none Drug use: none Internal Medicine - H&P: Meds Ibuprofen [Motrin] 600 mg PO Q8HR PRN 5 Days 03/09/15 [Rx] Dicyclomine [Bentyl] 10 mg PO QID PRN #14 capsule 03/22/15 [Rx] LORazepam [Ativan] 1 mg PO BID #10 tablet 03/29/16 [Rx] Ondansetron [Zofran] 4 mg PO Q8HR PRN 5 Days 03/29/16 [Rx] Allergies codeine Allergy (Intermediate, Verified 03/25/16 08:43) Hives All Systems PM: A 10-system review of systems was performed and is negative for pertinent findings except as documented above in the HPI. - Constitutional Vitals: Temp Pulse Resp BP Pulse Ox 100.0 F H 86 16 128/94 96 03/30/16 19:17 03/30/16 21:21 03/30/16 23:22 03/30/16 23:22 03/30/16 21:21 Internal Med - H&P Results - Labs CBC & Chem 7: 03/30/16 19:40 03/30/16 19:40
[2016-03-31] MEDS: Ringers Solution, Lactated 1,000 ML IVC SCH ×2 (00:16→21:10)
[2016-03-31] MEDS ORDERED: Doxycycline 100 MG in 0.9 % Sodium Chloride Mini Bag 100 ML IVPB SCH (06:00)
[2016-03-31] MEDS: *HR* Enoxaparin 40 MG/0.4 ML SYRINGE SQ SCH (06:18)
[2016-03-31] MEDS: Pantoprazole 40 MG VIAL IVP SCH (08:05)
[2016-03-31] MEDS: *HR* LORazepam 1 MG TABLET PO SCH ×2 (08:06→21:10)
--- NOTE | 2016-03-31 16:11 | Electrocardiograph Report ---
[facility] Test Date: 2016-03-30 Pat Name: Lizette Tamayo Department: 104 Room: 2NE25 Gender: F [employer] Library Clerk: LITZY : 1965 Requested By: Dmitry Ceja Order Number: [id number] Reading MD: Sonya Mac Measurements Intervals [place] Rate: 97 P: 45 MI: 124 QRS: -2 QRSD: 74 T: 2 QT: 409 QTc: 464 Interpretive Statements SINUS RHYTHM POSSIBLE LEFT ATRIAL ENLARGEMENT MODERATE T-WAVE ABNORMALITY, CONSIDER LATERAL ISCHEMIA Electronically Signed On 03-31-16 16:09:10 EST by Sonya Mac
[2016-03-31 17:01] LABS: 2009 H1N1 PCR NOT DETECTED (Not Detect); Influenza A PCR Negative (Negative); Influenza B PCR Negative (Negative)
--- NOTE | 2016-03-31 17:59 | Internal Med Progress Note ---
<Gerardo Santos - Last Filed: 03/31/16 18:03> Date of Encounter: 03/31/16 Time of Encounter: 09:15 - Assessment and plan (1) Headache Current Visit: Yes Status: Acute Assessment and plan: resolved. Normal LP. alert with normal mentation. Meningitis/encephalitis highly unlikely. Will stop antibiotics at this time. Possibly secondary to a viral illness. (2) Abdominal pain Current Visit: Yes Status: Acute Assessment and plan: Etiology unclear. recent MRCP and CT of the abdomen showed no acute findings. I did consider yersinia infection as she has some mild mesenteric lymphadenopathy with straning. No exposure to canines. Possibly viral? (3) Leukocytosis Current Visit: Yes Status: Acute Assessment and plan: mild. mild fever repeat labs in the AM. (4) Fever Current Visit: Yes Status: Acute Assessment and plan: mild. 100.6 possibly viral. No source of bacterial infection at this time. she is clinically stable so will DC antibiotics. Check UA and CXR. (5) DVT prophylaxis Current Visit: Yes Status: Acute Assessment and plan: SQ lovenox - Subjective Interval history: patient states she is feeling some better. She has had resolution of her headache. However she continues to have abdominal pain, nausea and vomitting. She admits to mild epigastric tenderness. No further complaints or concerns at this time - Constitutional Vitals: Temp Pulse Resp BP Pulse Ox 98.1 F 80 11 138/93 98 03/31/16 16:41 03/31/16 16:41 03/31/16 16:41 03/31/16 16:41 03/31/16 16:41 General appearance: Present: A&O X 3, pleasant, no acute distress - Head Head exam: Present: atraumatic, normocephalic - Eye Eye exam: Present: PERRL, conjuntiva pink, sclera anicteric Pupils: Present: PERRL - ENT ENT exam: Present: mucous membranes moist, TM's normal bilaterally - Neck Neck exam general surgery: Present: supple, trachea midline. Absent: lymphadenopathy - Respiratory Respiratory exam: Present: CTAB. Absent: accessory muscle use, rales, rhonchi, wheezes - Cardiovascular Cardiovascular exam: Present: RRR, +S1, +S2. Absent: diastolic murmur, gallop, rubs, systolic murmur - GI/Abdominal GI/Abdominal exam: Present: normal bowel sounds, soft, no peritoneal signs. Absent: distended, tenderness - Extremities Exam Extremities exam: Present: warm, radial pulses palpable and symetrical. Absent : calf tenderness, cyanotic, pedal edema - Skin Skin exam: Present: dry, intact Internal Medicine: Result - Labs CBC & Chem 7: 03/30/16 19:40 03/30/16 19:40 Consult Discharge Plan - Plan Referrals: Randy Naranjo MD [Primary Care Provider] - <Tarun Fernandez - Last Filed: 03/31/16 18:50> - Assessment and plan (1) Headache Current Visit: Yes Status: Acute Qualifiers: Headache type: other headache syndrome Qualified Code(s): G44.89 - Other headache syndrome (2) Abdominal pain Current Visit: Yes Status: Acute Qualifiers: Abdominal location: generalized Qualified Code(s): R10.84 - Generalized abdominal pain (3) Nonspecific mesenteric adenitis Current Visit: No Status: Acute (4) Obesity (BMI 30-39.9) Current Visit: No Status: Chronic (5) Nonspecific syndrome suggestive of viral illness Current Visit: No Status: Acute - Constitutional Vitals: Temp Pulse Resp BP Pulse Ox 98.1 F 80 11 138/93 98 03/31/16 16:41 03/31/16 16:41 03/31/16 16:41 03/31/16 16:41 03/31/16 16:41 Internal Medicine: Result - Labs CBC & Chem 7: 03/30/16 19:40 03/30/16 19:40 - Attending Attestation I examined this patient and my medical decision-making was reviewed with the Resident Physician on 03/31/16. I agree with the documented findings, disposition and treatment plan as described except to the extent set forth below. Ms. Tamayo is currently admitted for acute myalgias, viral illness. Concern for meningitis and tap was negative. She is moderate risk due to potential worsening of neurologic status. Ms. Tamayo is still very tired and achy. Had low grade temp today. Abd photographer still. No urinary symptoms. No CP or SOB now. Exam Alert. Comfortable Heart reg Lungs no wheeze I/P 1. Cephalgia - most likely viral. Awaiting final testing. 2. Abd pain - viral versus other 3. Leukocytosis 4. Low grade temp Further diagnoses and plan as above.
[2016-03-31 21:44] LABS: Bilirubin,Urine Negative (Negative); Blood,Urine Negative (Negative); Clarity,Urine Clear (Clear); Color,Urine Yellow (Yellow); Glucose,Urine (UA) Normal (Normal); Ketones,Urine Negative (Negative); Leukocyte Esterase,Urine Trace (Negative); Nitrite,Urine Negative (Negative); Protein,Urine Negative (Neg-Trace); Specific Gravity,Urine 1.011 (1.010-1.025); Urobilinogen,Urine Normal (Normal)
[2016-03-31 21:46] LABS: Bacteria,Urine None Seen per hpf (None-Few); Hyaline Casts,Urine None Seen per lpf (None-Few); RBC,Urine 0-3 per hpf (0-3); Squamous Epithelial Cell,Urine Many per lpf (None-Few)
[2016-04-01] MEDS: *HR* Enoxaparin 40 MG/0.4 ML SYRINGE SQ SCH (05:31)
[2016-04-01] MEDS: Ringers Solution, Lactated 1,000 ML IVC SCH ×2 (05:32→22:15)
[2016-04-01 05:55] LABS: Basophils % 0.3 %; Eosinophils % 0.3 %; Hematocrit 37.1 % (35.3-44.9); Lymphocytes # 1.7 K/mcL (0.6-4.6); Mean Corpuscular HGB Conc 33.4 g/dL (31.6-35.5); Mean Corpuscular Volume 89.8 fL (83.0-100.0); Mean Platelet Volume 10.1 fL (9.4-12.4); Monocytes # 0.5 K/mcL (0.0-1.3); Monocytes % 7.4 %; Neutrophils # 3.9 K/mcL (1.6-8.9); Platelet Count 271 K/mcL (140-400); Red Blood Count 4.13 M/mcL (3.82-4.97); Red Cell Distribution Width 12.7 % (11.5-14.5)
[2016-04-01 06:09] LABS: Hemoglobin 12.4 g/dL (11.5-15.4)
[2016-04-01 06:14] LABS: BUN/Creatinine Ratio 15 (6-26); Blood Urea Nitrogen 12 mg/dL (7-20); Calcium 9.3 mg/dL (8.6-10.8); Carbon Dioxide 26 mEq/L (19-29); Chloride 104 mEq/L (98-109); Glucose 96 mg/dL (70-99); Osmolality,Calculated 290 (280-300); Sodium 140 mEq/L (136-145); eGFR For African Americans > 60 (> 60); eGFR For Non-African Americans > 60 (> 60)
[2016-04-01] MEDS: Acetaminophen 325 MG TABLET PO PRN (10:31)
[2016-04-01] MEDS: *HR* LORazepam 1 MG TABLET PO SCH ×2 (10:31→22:17)
[2016-04-01] MEDS: Pantoprazole 40 MG VIAL IVP SCH (13:27)
--- NOTE | 2016-04-01 14:57 | Internal Med Progress Note ---
<MayteJaimeYemi P - Last Filed: 04/01/16 17:55> - Constitutional Vitals: Temp Pulse Resp BP Pulse Ox 98.9 F 71 13 129/78 100 04/01/16 16:43 04/01/16 16:43 04/01/16 16:43 04/01/16 16:43 04/01/16 16:43 Internal Medicine: Result - Labs CBC & Chem 7: 04/01/16 05:31 04/01/16 05:31 Labs: Short CBC 04/01/16 Range/Units 05:31 WBC 6.1 (4.3-11.1) K/mcL Hgb 12.4 D (11.5-15.4) g/dL Hct 37.1 (35.3-44.9) % Plt Count 271 (140-400) K/mcL Neutrophils # 3.9 (1.6-8.9) K/mcL BMP 04/01/16 05:31 Sodium 140 Potassium 4.0 Chloride 104 Carbon Dioxide 26 BUN 12 Creatinine 0.81 Glucose 96 Calcium 9.3 Urine 03/31/16 Range/Units 21:25 Urine Color Yellow (Yellow) Urine Clarity Clear (Clear) Urine pH 7.0 (5.0-8.0) pH Units Ur Specific [place] 1.011 (1.010-1.025) Urine Protein Negative (Neg-Trace) mg/dL Urine Glucose (UA) Normal (Normal) mg/dL - Impressions Impressions Chest X-Ray 03/31/16 18:13 IMPRESSION: No acute process. D/ / Joe Forte MD / Joe Forte MD Interpreting Provider: Joe Forte MD Consult Discharge Plan - Plan Instructions: Acute Nausea and Vomiting (DC), Acute Nausea and Vomiting (GEN), Acute Diarrhea (GEN) Referrals: Clifton Jaramillo MD [Partnered Physician] - 04/10/16 2:00 pm (stella is out off the office that week) Randy Naranjo MD [Primary Care Provider] - 04/02/16 9:35 am Prescriptions: Loperamide [Imodium] 2 mg PO Q4HR PRN 14 Days PRN Reason: diarhea Promethazine [Phenergan] 12.5 mg PO Q6HR 14 Days Dicyclomine [Bentyl] 10 mg PO QID 30 Days Ondansetron HCl [Zofran] 4 mg PO Q8H PRN #20 tablet PRN Reason: Nausea - Attending Attestation I examined this patient and my medical decision-making was reviewed with the [employer]/PA/Advanced Practice Nurse/Resident Physician. I agree with the documented findings, disposition and treatment plan as described except to the extent set forth below. <Gerardo Santos - Last Filed: 04/02/16 15:01> Date of Encounter: 04/02/16 Time of Encounter: 14:51 - Assessment and plan (1) Headache Current Visit: Yes Status: Acute Assessment and plan: resolved. Normal LP. alert with normal mentation. Meningitis/encephalitis highly unlikely. Possibly secondary to a viral illness. I reviewed CT scan as well. She has normal ventricle size headache has resolved. Qualifiers: Headache type: other headache syndrome Qualified Code(s): G44.89 - Other headache syndrome (2) Abdominal pain Current Visit: Yes Status: Acute Assessment and plan: Etiology unclear. recent MRCP and CT of the abdomen showed no acute findings. I did consider yersinia infection as she has some mild mesenteric lymphadenopathy with straning. No exposure to canines. Possibly viral? Would alos consider gastroparesis. May consdier outpatient gastric emptying study. Qualifiers: Abdominal location: generalized Qualified Code(s): R10.84 - Generalized abdominal pain (3) Leukocytosis Current Visit: Yes Status: Acute Assessment and plan: resolved Qualifiers: Qualified Code(s): D72.829 - Elevated white blood cell count, unspecified (4) Fever Current Visit: Yes Status: Acute Assessment and plan: resolved Qualifiers: Qualified Code(s): R50.9 - Fever, unspecified (5) Diarrhea Current Visit: Yes Status: Acute Assessment and plan: check Cdiff and stool cultures Qualifiers: Qualified Code(s): R19.7 - Diarrhea, unspecified (6) DVT prophylaxis Current Visit: Yes Status: Acute - Subjective Interval history: Patient complains of continued Nausea and vomiting. She has had 3 episodes of loose watery stools. she states her head ache has resolved. She still has some N/V. She denies any abdominal pain this AM. No further complaints at this time. - Constitutional Vitals: Temp Pulse Resp BP Pulse Ox 98.9 F 75 14 138/89 100 04/01/16 11:25 04/01/16 11:25 04/01/16 11:25 04/01/16 11:25 04/01/16 11:25 Exam: General: This is a well-developed well-nourished 50-year-old female who is alert and orientated to person place time and situation. Signed that appears to be comfortable acute distress at this time. Head: Head is normal cephalic atraumatic. EENT: Anicteric sclera, pupils equally round reactive to light and accommodation , moist mucous membranes, neck supple without masses or thyromegaly. Heart: Regular rate and rhythm without murmurs rubs or gallops. Lungs: Clear to auscultation bilaterally. Normal effort of breathing. Abdomen: The abdomen is obese, nondistended, nontender to palpation. Bowel sounds are present. No bruits or organomegaly present. Musculoskeletal: Grossly normal for age no gross deformities noted. Extremities: There is no clubbing, cyanosis or edema. Technique: No rashes or lesions noted. Internal Medicine: Result - Labs CBC & Chem 7: 04/02/16 05:34 04/02/16 05:34 Labs: Short CBC 04/01/16 Range/Units 05:31 WBC 6.1 (4.3-11.1) K/mcL Hgb 12.4 D (11.5-15.4) g/dL Hct 37.1 (35.3-44.9) % Plt Count 271 (140-400) K/mcL Neutrophils # 3.9 (1.6-8.9) K/mcL BMP 04/01/16 05:31 Sodium 140 Potassium 4.0 Chloride 104 Carbon Dioxide 26 BUN 12 Creatinine 0.81 Glucose 96 Calcium 9.3 Urine 03/31/16 Range/Units 21:25 Urine Color Yellow (Yellow) Urine Clarity Clear (Clear) Urine pH 7.0 (5.0-8.0) pH Units Ur Specific [place] 1.011 (1.010-1.025) Urine Protein Negative (Neg-Trace) mg/dL Urine Glucose (UA) Normal (Normal) mg/dL - Impressions Impressions Chest X-Ray 03/31/16 18:13
[2016-04-02] MEDS: Acetaminophen 325 MG TABLET PO PRN (05:34)
[2016-04-02] MEDS: *HR* Enoxaparin 40 MG/0.4 ML SYRINGE SQ SCH (05:35)
[2016-04-02 06:00] LABS: Basophils % 0.6 %; Eosinophils # 0.1 K/mcL (0.0-0.6); Eosinophils % 1.3 %; Hematocrit 37.4 % (35.3-44.9); Hemoglobin 12.3 g/dL (11.5-15.4); Immature Granulocytes % 0.4 % (0-4); Lymphocytes # 1.2 K/mcL (0.6-4.6); Lymphocytes % 25.9 %; Mean Corpuscular HGB Conc 32.9 g/dL (31.6-35.5); Mean Corpuscular Hemoglobin 29.2 pg (28.0-33.3); Mean Corpuscular Volume 88.8 fL (83.0-100.0); Mean Platelet Volume 9.8 fL (9.4-12.4); Monocytes # 0.4 K/mcL (0.0-1.3); Monocytes % 8.6 %; Platelet Count 258 K/mcL (140-400); Red Blood Count 4.21 M/mcL (3.82-4.97); Red Cell Distribution Width 12.4 % (11.5-14.5); Segmented Neutrophils % 63.2 %
[2016-04-02 06:20] LABS: BUN/Creatinine Ratio 9 (6-26); Blood Urea Nitrogen 7 mg/dL (7-20); Carbon Dioxide 28 mEq/L (19-29); Chloride 100 mEq/L (98-109); Glucose 90 mg/dL (70-99); Osmolality,Calculated 286 (280-300); Potassium 3.7 mEq/L (3.5-4.5); Sodium 139 mEq/L (136-145); eGFR For African Americans > 60 (> 60); eGFR For Non-African Americans > 60 (> 60)
[2016-04-02] MEDS: Pantoprazole 40 MG VIAL IVP SCH (09:04)
[2016-04-02] MEDS: *HR* LORazepam 1 MG TABLET PO SCH (09:04)
[2016-04-02 11:18] LABS: Adenovirus F 40/41 PCR Not detected (Not detect); Astrovirus PCR Not detected (Not detect); C.difficile Toxin A/B by PCR Not detected (Not detect); Campylobacter by PCR Not detected (Not detect); Cryptosporidium by PCR Not detected (Not detect); Cyclospora cayetanensis PCR Not detected (Not detect); E. coli O157 by PCR Not detected (Not detect); Entamoeba histolytica PCR Not detected (Not detect); Enteroaggregative E.coli(EAEC) Not detected (Not detect); Enteropathogenic E.coli(EPEC) Not detected (Not detect); Enterotoxigenic E.coli (ETEC) Not detected (Not detect); Giardia lamblia PCR Not detected (Not detect); Norovirus GI/GII PCR Not detected (Not detect); Plesiomonas shigelloides PCR Not detected (Not detect); Rotavirus A PCR Not detected (Not detect); Salmonella PCR Not detected (Not detect); Sapovirus PCR Not detected (Not detect); Shig/EnteroinvasiveE coli EIEC Not detected (Not detect); Shigalike tox-prod E coli STEC Not detected (Not detect); Vibrio PCR Not detected (Not detect); Vibrio cholerae PCR Not detected (Not detect); Yersinia enterocolitica PCR Not detected (Not detect)
[2016-04-02 11:52] VITALS: BP 125/77
--- NOTE | 2016-04-02 14:53 | Discharge Summary ---
<Gerardo Santos - Last Filed: 04/02/16 15:52> Date of Encounter: 04/02/16 Time of Encounter: 14:45 - Discharge Diagnosis (1) Headache Status: Acute Qualifiers: Headache type: other headache syndrome Qualified Code(s): G44.89 - Other headache syndrome (2) Abdominal pain Status: Acute Qualifiers: Abdominal location: generalized Qualified Code(s): R10.84 - Generalized abdominal pain (3) Leukocytosis Status: Acute Qualifiers: Qualified Code(s): D72.829 - Elevated white blood cell count, unspecified (4) Fever Status: Acute Qualifiers: Qualified Code(s): R50.9 - Fever, unspecified (5) Diarrhea Status: Acute Qualifiers: Qualified Code(s): R19.7 - Diarrhea, unspecified (6) DVT prophylaxis Status: Acute - Discharge Medications Prescriptions: Loperamide [Imodium] 2 mg PO Q4HR PRN 14 Days PRN Reason: diarhea Promethazine [Phenergan] 12.5 mg PO Q6HR #12 tablet Dicyclomine [Bentyl] 10 mg PO QID #90 capsule Ondansetron HCl [Zofran] 4 mg PO Q8H PRN #20 tablet PRN Reason: Nausea Home Medications: Dicyclomine [Bentyl] 10 mg PO QID #90 capsule 04/02/16 [Rx] Loperamide [Imodium] 2 mg PO Q4HR PRN 14 Days 04/02/16 [Rx] Ondansetron HCl [Zofran] 4 mg PO Q8H PRN #20 tablet 04/02/16 [Rx] Promethazine [Phenergan] 12.5 mg PO Q6HR #12 tablet 04/02/16 [Rx] Allergies/Adverse Reactions: Allergies codeine Allergy (Intermediate, Verified 03/25/16 08:43) Hives Date of admission: 03/30/16 23:36 Primary care physician: Randy Naranjo MD Consults: 03/31/16 00:50 Consult to Safety Physician [CONS] Routine Reason for SW Consult: financial concerns Discharging clinician: Gerardo Santos Anticipated date of discharge: 04/02/16 - Patient Status Disposition: Home, Self-Care Condition: Fair Functional capacity at discharge: independent ambulation Overall status at discharge: patient is progressing back to baseline - Discharge Instructions Instructions: Loperamide (By mouth), Dicyclomine (By mouth), Promethazine (By mouth), Ondansetron (By mouth), Acute Nausea and Vomiting (DC), Acute Nausea and Vomiting (GEN), Acute Diarrhea (GEN) Follow Up With: Clifton Jaramillo MD [Partnered Physician] - 04/10/16 2:00 pm (stella is out off the office that week) Randy Naranjo MD [Primary Care Provider] - 04/02/16 9:35 am - Diet and Activity Activity: increase activity as tolerated Diet: advance to your usual diet Hospital course: Ms. Tamayo is a 50 year old female who was admitted to the hospital with concerns of Meningitis. she also had Abdominal pain nausea and emesis. she had an LP which was normal. Cultures showed no growth and she had a resolution of her symptoms. She had also had a recent hospitalization for complaints of abdominal pain. she had a CT of the abdomen and pelvis as well as MRCP, LFTS and Lipase all of which were non diagnostic. She has complained of mild abdominal discomfort this admission as well. She had some loose stools and tested negative for Cdiff. She has a normal WBC count and is afebrile. We will discharge her today as she is stable and tolerating a diet without any significant lab abnormalities and improvement of her symptoms. Would consider possible gastric emptying study as outpatient to rule out gastroparesis. Her abdominal pain /constipation/diarrhea may be related to her irritable bowel syndrome as well. - Time Spent with Patient Total time spent providing and/or coordinating discharge services: Less than 30 minutes - Constitutional Vitals: Temp Pulse Resp BP Pulse Ox 98.7 F 76 15 125/77 97 04/02/16 11:49 04/02/16 11:49 04/02/16 11:49 04/02/16 11:49 04/02/16 11:49 General appearance: Present: A&O X 3, pleasant, no acute distress - Head Head exam: Present: atraumatic, normocephalic - Eye Eye exam: Present: PERRL, conjuntiva pink, sclera anicteric Pupils: Present: PERRL - Neck Neck exam general surgery: Present: supple, trachea midline. Absent: lymphadenopathy - Respiratory Respiratory exam: Present: CTAB. Absent: accessory muscle use, rales, rhonchi, wheezes - Cardiovascular Cardiovascular exam: Present: RRR, +S1, +S2. Absent: diastolic murmur, gallop, rubs, systolic murmur - GI/Abdominal GI/Abdominal exam: Present: normal bowel sounds, soft, no peritoneal signs. Absent: distended, tenderness - Extremities Exam Extremities exam: Present: warm, radial pulses palpable and symetrical. Absent : calf tenderness, cyanotic, pedal edema - Neurological Exam Neurological exam: Present: CN II-XII intact, oriented X3 - Skin Skin exam: Present: dry, intact <Mayte,Yemi P - Last Filed: 04/02/16 17:57> Date of admission: 03/30/16 23:36 Primary care physician: Randy Naranjo MD Consults: 03/31/16 00:50 Consult to Safety Physician [CONS] Routine Reason for SW Consult: financial concerns Hospital course: Ms. Tamayo is a 50 year old female - Time Spent with Patient Total time spent providing and/or coordinating discharge services: - Constitutional Vitals: Temp Pulse Resp BP Pulse Ox 98.7 F 76 15 125/77 97 04/02/16 11:49 04/02/16 11:49 04/02/16 11:49 04/02/16 11:49 04/02/16 11:49 - Attending Attestation I examined this patient and my medical decision-making was reviewed with the PRODUCT MANAGEMENT SPECIALIST/PA/Advanced Practice Nurse/Resident Physician. I agree with the documented findings, disposition and treatment plan as described except to the extent set forth below.
[2016-04-02] MEDS ORDERED: FLU VACC QS2016-17 36MOS UP/PF 0.5 ML SYRINGE IM ONE (15:54)
[2016-04-03 14:35] LABS: HSV 1 Glycoprotein G IgG CSF 0.27 IV (<=0.89); HSV 2 Glycoprotein G IgG CSF 0.03 IV (<=0.89)
== END 2016-04-02 17:06 | disposition home or self-care (01) | DRG 103 ==
LOC: 2NENU 19:16 → EMEROO 19:16 → SUATTDRO 23:36 → 2NENU 23:39
PROVIDERS: ADMIT Family Medicine; ATTEND Internal Medicine

== ENCOUNTER 2019-01-18 11:43 | Observation (INO) ==
[2019-01-18] MEDS ORDERED: Isovue-370 500 ML BOTTLE IVP ONE (12:59)
[2019-01-18 13:10] LABS: Basophils # 0.1 K/mcL (0.0-0.2); Basophils % 0.9 %; Eosinophils # 0.1 K/mcL (0.0-0.6); Eosinophils % 0.9 %; Hematocrit 40.3 % (35.3-44.9); Hemoglobin 14.3 g/dL (11.5-15.4); Immature Granulocytes % 0.2 % (0-4); Lymphocytes # 1.5 K/mcL (0.6-4.6); Mean Corpuscular HGB Conc 35.5 g/dL (31.6-35.5); Mean Corpuscular Hemoglobin 31.6 pg (28.0-33.3); Mean Corpuscular Volume 89.2 fL (83.0-100.0); Mean Platelet Volume 10.3 fL (9.4-12.4); Monocytes # 0.5 K/mcL (0.0-1.3); Monocytes % 8.6 %; Neutrophils # 3.5 K/mcL (1.6-8.9); Platelet Count 280 K/mcL (140-400); Red Blood Count 4.52 M/mcL (3.82-4.97); Red Cell Distribution Width 11.9 % (11.5-14.5); Segmented Neutrophils % 62.4 %; White Blood Count 5.7 K/mcL (4.3-11.1)
[2019-01-18 13:22] LABS: Prothrombin Time 11.7 Seconds (9.4-12.1)
[2019-01-18 13:30] LABS: Albumin 4.7 g/dL (3.5-5.7); Albumin/Globulin Ratio 1.7 (1.1-2.2); Bilirubin,Direct 0.1 mg/dL (0.0-0.2); Bilirubin,Indirect 0.6 mg/dL (0.0-1.0); Bilirubin,Total 0.7 mg/dL (0.3-1.0); Globulin 2.7 g/dL (2.4-3.5); Total Protein 7.4 g/dL (6.4-8.9)
[2019-01-18 13:39] LABS: BUN/Creatinine Ratio 15 (6-26); Blood Urea Nitrogen 13 mg/dL (6-20); Calcium 9.8 mg/dL (8.6-10.3); Carbon Dioxide 27 mEq/L (23-29); Chloride 101 mEq/L (98-107); Glucose 96 mg/dL (70-105); Osmolality,Calculated 286 (280-300); Potassium 4.1 mEq/L (3.5-5.1); Sodium 138 mEq/L (136-145); Troponin I < 0.03 ng/mL (< 0.04); eGFR For African Americans > 60 (> 60); eGFR For Non-African Americans > 60 (> 60)
[2019-01-18] MEDS ORDERED: Aspirin 81 MG TAB.CHEW PO STA (15:39)
[2019-01-18] MEDS ORDERED: Naloxone 0.4 MG/ML INJ IVP PRN (16:42)
[2019-01-18] MEDS ORDERED: Ondansetron 4 MG/2 ML VIAL IVP PRN (16:42)
[2019-01-18] MEDS ORDERED: Acetaminophen 325 MG TABLET PO PRN (16:45)
[2019-01-18] MEDS ORDERED: Nitroglycerin 0.4 MG TAB.SUBL SL PRN (16:46)
[2019-01-18 18:05] LABS: Bilirubin,Urine Negative (Negative); Blood,Urine Negative (Negative); Clarity,Urine Clear (Clear); Color,Urine Yellow (Yellow); Glucose,Urine (UA) Normal (Normal); Ketones,Urine Trace mg/dL (Negative); Leukocyte Esterase,Urine Negative (Negative); Nitrite,Urine Negative (Negative); PH,Urine 6.5 pH Units (5.0-8.0); Protein,Urine Negative (Neg-Trace); Specific Gravity,Urine > 1.030 (1.010-1.025); Urobilinogen,Urine Normal (Normal)
[2019-01-18] MEDS: *HR* Heparin 5,000 UNIT/ML VIAL SQ SCH (18:12)
[2019-01-18] MEDS: 0.9 % Sodium Chloride 1,000 ML IVC SCH (18:12)
[2019-01-19] MEDS ORDERED: Acetaminophen IV 1,000 MG/100 ML INFUS..BTL IVPB ONE (02:45)
[2019-01-19 06:10] LABS: BUN/Creatinine Ratio 15 (6-26); Blood Urea Nitrogen 14 mg/dL (6-20); Calcium 9.6 mg/dL (8.6-10.3); Carbon Dioxide 29 mEq/L (23-29); Chloride 102 mEq/L (98-107); Chol/HDL Ratio 5.1 (0-4.9); Cholesterol 203 mg/dL (< 200); Glucose 97 mg/dL (70-105); HDL Cholesterol 40 mg/dL (40-59); LDL Cholesterol,Calculated 137 mg/dL (0-99); Osmolality,Calculated 288 (280-300); Sodium 139 mEq/L (136-145); Triglycerides 128 mg/dL (< 150); eGFR For African Americans > 60 (> 60); eGFR For Non-African Americans > 60 (> 60)
[2019-01-19] MEDS: 0.9 % Sodium Chloride 1,000 ML IVC SCH (06:22)
[2019-01-19] MEDS: *HR* Heparin 5,000 UNIT/ML VIAL SQ SCH ×2 (06:22→15:56)
[2019-01-19] MEDS: Aspirin 81 MG TAB.CHEW PO SCH (08:01)
[2019-01-19] MEDS ORDERED: Pantoprazole 40 MG VIAL IVP SCH (09:00)
[2019-01-19] MEDS: Fluticasone Propionate Nasal 50 MCG/SPRAY BOTTLE NS SCH (15:55)
[2019-01-19 17:19] LABS: Adenovirus Not Detected (Not Detect); Bordetella Pertussis Not Detected (Not Detect); Chlamydophila pneumoniae Not Detected (Not Detect); Coronavirus 229E Not Detected (Not Detect); Coronavirus HKU1 Not Detected (Not Detect); Coronavirus NL63 Not Detected (Not Detect); Coronavirus OC43 Not Detected (Not Detect); Human Metapneumovirus Not Detected (Not Detect); Human Rhinovirus/Enterovirus Not Detected (Not Detect); Influenza A Subtype 2009 H1 Not Detected (Not Detect); Influenza A Untypeable Not Detected (Not Detect); Influenza B Not Detected (Not Detect); Mycoplasma pneumoniae Not Detected (Not Detect); Parainfluenza Virus 1 Not Detected (Not Detect); Parainfluenza Virus 2 Not Detected (Not Detect); Parainfluenza Virus 3 Not Detected (Not Detect); Parainfluenza Virus 4 Not Detected (Not Detect); Respiratory Syncytial Virus Not Detected (Not Detect)
[2019-01-20] MEDS: Artificial Tears SOLN 15 ML BOTTLE BOTH EYES SCH ×2 (01:46→09:14)
[2019-01-20] MEDS: *HR* Heparin 5,000 UNIT/ML VIAL SQ SCH (06:29)
[2019-01-20 07:17] VITALS: BP 125/80
[2019-01-20] MEDS: Aspirin 81 MG TAB.CHEW PO SCH (09:13)
[2019-01-20] MEDS: Fluticasone Propionate Nasal 50 MCG/SPRAY BOTTLE NS SCH (09:14)
[2019-01-20] MEDS ORDERED: FLU Vac QV 19-20 (6Month+)/PF 0.5 ML SYRINGE IM ONE (10:49)
== END 2019-01-20 11:04 | disposition home or self-care (01) ==
LOC: 2ANU 11:43 → EMEROOARM 11:43 → SUATTDRO 16:40 → 2ANU 17:07
PROVIDERS: ADMIT Internal Medicine; ATTEND General Practice